=== PATIENT | female | born 1965 | race Caucasian/White ===

== ENCOUNTER → 2016-10-07 | Outpatient (CLI) | payer BC ==
[2016-10-07 10:11] LABS: BASO % 0.4 %; BASO ABS # 0.02 K/uL (0-0.2); COMPLETE YES; EOS % 2.2 %; HEMATOCRIT 44.5 % (37-47); IG% 0.2 %; LYMPH % 23.5 %; LYMPH ABS # 1.09 K/uL (1.2-3.4); MEAN CELL VOLUME 89.9 fL (80-100); MEAN CORPUSCULAR HEMOGLOBIN 30.1 pg (25-34); MEAN CORPUSCULAR HGB CONC 33.5 g/dl (32-36); MEAN PLATELET VOLUME 10.4 fL (7.4-10.4); MONO % 9.1 %; NEUT % 64.6 %; PLATELET COUNT 265 K/uL (130-400); RED BLOOD COUNT 4.95 M/uL (4.2-5.4); WHITE BLOOD COUNT 4.64 K/uL (4.8-10.8)
[2016-10-07 10:35] LABS: ALT/SGPT 23 U/L (12-78); AST/SGOT 12 U/L (15-37); BLOOD UREA NITROGEN 17 mg/dl (7-18); CALCIUM 8.9 mg/dl (8.5-10.1); CARBON DIOXIDE 30 mmol/L (21-32); CHLORIDE 107 mmol/L (98-107); CREATININE 0.81 mg/dl (0.60-1.20); GLUCOSE 86 mg/dl (70-99); POTASSIUM 4.2 mmol/L (3.5-5.1); SODIUM 142 mmol/L (136-145)
[2016-10-07 10:46] LABS: CHOLESTEROL 159 mg/dl (0-200); CHOLESTEROL/HDL RATIO 2.5; HDL CHOLESTEROL 63 mg/dl; LDL CHOLESTEROL CALCULATED 84 mg/dl; THYROID STIMULATING HORMONE 0.912 uIu/ml (0.300-4.500); TRIGLYCERIDES 60 mg/dl (0-150); VERY LOW DENSITY LIPOPROT CALC 12 mg/dl
== END | disposition home or self-care (01) ==
LOC: C.LAB 09:15
DX: E05.90 Thyrotoxicosis, unspecified without thyrotoxic crisis or storm (principal); I10 Essential (primary) hypertension

== ENCOUNTER → 2016-12-08 | Outpatient (CLI) | payer BC ==
--- NOTE | 2016-12-09 13:25 | MAMMOGRAPHY REPORT ---
BILATERAL DIGITAL SCREENING MAMMOGRAM TOMOSYNTHESIS WITH CAD: 12/08/2016 CLINICAL HISTORY: Routine screening. Patient has no complaints. TECHNIQUE: Breast tomosynthesis in addition to standard 2D mammography was performed. Current study was also evaluated with a Computer Aided Detection (CAD) system. COMPARISON: Comparison is made to exams dated: 12/08/2015 mammogram, 11/25/2014 mammogram, 11/22/2013 ma mmogram, 11/21/2012 mammogram, 11/04/2011 mammogram, and 11/02/2010 mammogram - [facility] nter. BREAST COMPOSITION: The tissue of both breasts is heterogeneously dense, which may obscure small mas ses. FINDINGS: No suspicious masses, calcifications, or areas of architectural distortion are noted in ei ther breast. There has been no significant interval change compared to prior exams. Scattered bilater al benign-appearing calcifications are not significantly changed. IMPRESSION: ACR BI-RADS CATEGORY 2: BENIGN There is no mammographic evidence of malignancy. A 1 year screening mammogram is recommended. The pa tient will receive written notification of the results. Approximately 10% of breast cancers are not detected with mammography. A negative mammographic report should not delay biopsy if a clinically suggestive mass is present. Umm Torres M.D. ah/:12/09/2016 07:11:50 Radiator Cleaner: Michaelle CARDONA)(Lou)(BD), [facility] letter sent: Normal 1/2 BI-RADS Code: ACR BI-RADS Category 2: Benign
== END | disposition home or self-care (01) ==
LOC: C.MAMM 08:39
PROVIDERS: ATTEND Obstetrics & Gynecology
DX: Z12.31 Encounter for screening mammogram for malignant neoplasm of breast (principal)

== ENCOUNTER → 2017-06-03 | Outpatient (CLI) | payer BC ==
[2017-06-03 11:49] LABS: BASO % 0.4 %; BASO ABS # 0.02 K/uL (0-0.2); COMPLETE YES; HEMATOCRIT 44.3 % (37-47); LYMPH % 23.1 %; LYMPH ABS # 1.16 K/uL (1.2-3.4); MEAN CELL VOLUME 91.5 fL (80-100); MEAN CORPUSCULAR HGB CONC 33.9 g/dl (32-36); MEAN PLATELET VOLUME 9.8 fL (7.4-10.4); NEUT % 70.5 %; PLATELET COUNT 286 K/uL (130-400); RED BLOOD COUNT 4.84 M/uL (4.2-5.4); WHITE BLOOD COUNT 5.02 K/uL (4.8-10.8)
[2017-06-03 12:13] LABS: BLOOD UREA NITROGEN 18 mg/dl (7-18); BUN/CREATININE RATIO 21.4 (10-20); CALCIUM 9.1 mg/dl (8.5-10.1); CARBON DIOXIDE 31 mmol/L (21-32); CHLORIDE 105 mmol/L (98-107); CREATININE 0.82 mg/dl (0.60-1.20); GLUCOSE 120 mg/dl (70-99); POTASSIUM 3.9 mmol/L (3.5-5.1); SODIUM 140 mmol/L (136-145)
[2017-06-03 12:23] LABS: THYROID STIMULATING HORMONE 0.628 uIu/ml (0.300-4.500)
== END | disposition home or self-care (01) ==
LOC: C.LAB 11:23
DX: E03.9 Hypothyroidism, unspecified (principal); E55.9 Vitamin D deficiency, unspecified; M19.90 Unspecified osteoarthritis, unspecified site; I10 Essential (primary) hypertension

== ENCOUNTER → 2017-09-29 | Outpatient (CLI) | payer BC ==
[2017-09-29 09:35] LABS: BASO % 0.4 %; BASO ABS # 0.02 K/uL (0-0.2); EOS % 1.8 %; EOS ABS # 0.09 K/uL (0-0.5); HEMATOCRIT 42.6 % (37-47); HEMOGLOBIN 14.2 g/dL (12.0-16.0); IG# 0.01 K/uL (0.00-0.02); LYMPH ABS # 1.13 K/uL (1.2-3.4); MEAN CELL VOLUME 90.8 fL (80-100); MEAN CORPUSCULAR HEMOGLOBIN 30.3 pg (25-34); MEAN CORPUSCULAR HGB CONC 33.3 g/dl (32-36); MEAN PLATELET VOLUME 10.2 fL (7.4-10.4); MONO % 9.3 %; MONO ABS # 0.46 K/uL (0.11-0.59); NEUT % 65.3 %; NEUT ABS # 3.21 K/uL (1.4-6.5); PLATELET COUNT 283 K/uL (130-400); RED CELL DISTRIBUTION WIDTH CV 13.4 % (11.5-14.5); RED CELL DISTRIBUTION WIDTH SD 44.1 fL (36.4-46.3); WHITE BLOOD COUNT 4.92 K/uL (4.8-10.8)
[2017-09-29 09:46] LABS: BLOOD UREA NITROGEN 17 mg/dl (7-18); CALCIUM 9.1 mg/dl (8.5-10.1); CARBON DIOXIDE 29 mmol/L (21-32); GLUCOSE 89 mg/dl (70-99); POTASSIUM 4.3 mmol/L (3.5-5.1); SODIUM 140 mmol/L (136-145)
== END | disposition home or self-care (01) ==
LOC: C.LAB 07:25
DX: I10 Essential (primary) hypertension (principal); E03.9 Hypothyroidism, unspecified; Z13.220 Encounter for screening for lipoid disorders; M19.90 Unspecified osteoarthritis, unspecified site

== ENCOUNTER → 2017-10-06 | Outpatient (CLI) | payer BC ==
--- NOTE | 2017-10-06 13:54 | DIAGNOSTIC IMAGING REPORT ---
L HIP UNILATERAL 2 VIEWS, R HIP UNILATERAL 2 VIEWS HISTORY: 52 years-old Female BILATERAL HIP PAIN acute bilateral hip pain without reported trauma COMPARISON: None available TECHNIQUE: 2 views of the bilateral hips FINDINGS: RIGHT: Moderate joint space narrowing with marginal spurring, subchondral sclerosis and subcortical cystic changes. No acute fracture or dislocation. Degenerative changes are also noted within the pubic symphysis and right SI joint. No opaque foreign body. LEFT: Moderate to severe joint space narrowing with marginal spurring, subchondral sclerosis and subcortical cystic changes. No acute fracture or dislocation. IMPRESSION: 1. No acute fracture or dislocation. 2. Degenerative changes about the bilateral hips as above. The above report was generated using voice recognition software. It may contain grammatical, syntax or spelling errors. Electronically signed by: Jaya Cisneros M.D. 10/06/2017 1:53 PM Dictated Date/Time: 10/06/2017 1:51 PM
== END | disposition home or self-care (01) ==
LOC: C.RAD 13:24
DX: M25.559 Pain in unspecified hip (principal); M16.0 Bilateral primary osteoarthritis of hip

== ENCOUNTER 2018-10-26 04:53 | Inpatient (IN) ==
--- NOTE | 2018-09-26 10:12 | PAT Medication Instructions ---
Medication Instructions Date of Service September 26, 2018 Home Medications acetaminophen [Tylenol] 1 - 2 tab PO Q6H PRN ascorbic acid (vitamin C) 1 tab PO QAM cholecalciferol (vitamin D3) 3,000 unit PO QAM fluticasone propionate [Flonase] 1 spray INTRANASAL BID folic acid 0.8 mg PO QAM magnesium oxide 400 mg PO QAM methotrexate sodium 1 dose PO UD metoprolol succinate 25 mg PO QAM naproxen [Naprosyn] 500 mg PO BID ranitidine HCl 300 mg PO BID sumatriptan succinate [Imitrex] 1 tab PO UD PRN topiramate [Trokendi XR] 100 mg PO HS ASK your surgeon for instructions naproxen [Naprosyn] 500 mg PO BID ASK your prescriber and surgeon methotrexate sodium 1 dose PO UD Take morning of surgery With a small sip of water, OTHERWISE NOTHING TO EAT OR DRINK AFTER MIDNIGHT: acetaminophen [Tylenol] 1 - 2 tab PO Q6H PRN (if needed, may be taken up to four hours before surgery) fluticasone propionate [Flonase] 1 spray INTRANASAL BID metoprolol succinate 25 mg PO QAM ranitidine HCl 300 mg PO BID sumatriptan succinate [Imitrex] 1 tab PO UD PRN (if needed) Take evening before surgery acetaminophen [Tylenol] 1 - 2 tab PO Q6H PRN (if needed) fluticasone propionate [Flonase] 1 spray INTRANASAL BID naproxen [Naprosyn] 500 mg PO BID ranitidine HCl 300 mg PO BID sumatriptan succinate [Imitrex] 1 tab PO UD PRN (if needed) topiramate [Trokendi XR] 100 mg PO HS Other Notes If you have any questions please call us at [phone] or [phone] or [phone] or [phone]
--- NOTE | 2018-09-26 11:54 | Anesthesiology Consultation ---
Date of Service September 26, 2018 Assessment & Plan (1) Encounter for pre-operative examination: Chart Review Chart Review: Acceptable Risk for Surgery and Patient seen in Pre Admission Testing Teaching & Discussion Pre-Anesthesia Teaching/Discussion Notes: Instructed NPO after midnight before surgery,except medications with 15 cc of water. Medication instructions provided according to the PAT guidelines. History Surgery Operation Date: 10/26/18 12:30 Proposed Procedures p Left Anterior Total Hip Arhtroplasty - Salty Dorantes DO Height/Weight Height: 5 ft 3 in Weight: 87.9 kg Allergies Allergy/AdvReac Type Severity Reaction Status Date / Time No Known Allergies Allergy Verified 09/21/18 15:03 Medications Home Medications Medication Instructions Recorded Confirmed Last Taken acetaminophen [Tylenol] 1 - 2 tab PO Q6H PRN 09/21/18 09/21/18 Unknown ascorbic acid (vitamin C) [Vitamin 1 tab PO QAM 09/21/18 09/21/18 Unknown C] cholecalciferol (vitamin D3) 3,000 unit PO QAM 09/21/18 09/21/18 Unknown [Vitamin D3] fluticasone propionate [Flonase 1 spray INTRANASAL BID 09/21/18 09/21/18 Unknown Allergy Relief] folic acid 0.8 mg PO QAM 09/21/18 09/21/18 Unknown magnesium oxide 400 mg PO QAM 09/21/18 09/21/18 Unknown methotrexate sodium 1 dose PO UD 09/21/18 09/21/18 Unknown metoprolol succinate 25 mg PO QAM 09/21/18 09/21/18 Unknown naproxen [Naprosyn] 500 mg PO BID 09/21/18 09/21/18 Unknown ranitidine HCl 300 mg PO BID 09/21/18 09/21/18 Unknown sumatriptan succinate [Imitrex] 1 tab PO UD PRN 09/21/18 09/21/18 Unknown topiramate [Trokendi XR] 100 mg PO HS 09/21/18 09/21/18 Unknown tramadol 50 mg PO Q8H PRN 09/26/18 09/26/18 Unknown Past Medical History Medical History GERD (gastroesophageal reflux disease) CONTROLLED Hypertension Migraine Obesity Osteoarthritis Rheumatoid arthritis ON MTX Scoliosis Past Surgical History Surgical History History of tooth extraction WTE Past Anesthesia History No Hx of Anesthesia Complications and No Family Hx of Anesthesia Complications History of PONV No Motion Sickness Screening History of Motion Sickness: No Social History Smoking Status: Never smoker Do You Dip or Chew Tobacco: No Hx Alcohol Use: No Hx Substance Use: No substance use type: does not use Exercise / Class Metabolic Activity II 4-5 Yardwork/Stairs/Walk up hill Review of Systems Patient denies chest pain, shortness of breath, dyspnea on exertion, cough, wheezing, palpitations. Physical Exam Vital Signs VITALS BP 105/74 P 67 TEMP 97.8 SP02 98%RA RESP 18 PHYSICAL Full neck and c-spine range of motion. Full TMJ range of motion. TMD 3 finger breaths Mallampati Score 2 Dentition: missing molars Lungs: clear throughout to auscultation Cardiac: regular rate and rhythm, no murmurs noted Spine: normal Carotid arteries: negative bruit Extremities: no edema Testing Electrocardiogram Date: 09/26/18 Findings: + NSR @ (73) Chest X-Ray Date: 09/26/18 Findings: + NAD Thoracolumbar sigmoidal scoliosis. Cervical Spine Date: 09/26/18 Slight straightening of normal cervical lordosis possibly positional. Vertebral bodies maintain normal height and alignment. Mild to moderate intervertebral disc height loss at C5-6, where there is a disc osteophyte complex and mild resultant posterior bony spurring. Normal predental interval. No prevertebral soft tissue swelling. On flexion positioning, slight reversal of normal cervical curvature with resultant minimal kyphosis. No dynamic subluxation. The predental interval remains unchanged. On extension positioning, expected exaggeration of cervical lordosis. No dynamic subluxation. Normal predental interval. Laboratory Results 09/26/18 11:53 09/26/18 11:53 Blood Type O Negative 09/26/18 11:53 Antibody Screen NEGATIVE 09/26/18 11:53 PT 10.3 Seconds (9.0-12.0) 09/26/18 11:53 INR 1.0 (0.9-1.1) 09/26/18 11:53 APTT 26.2 Seconds (21.0-31.0) 09/26/18 11:53
[2018-09-26 12:17] LABS: Basophils # (auto) 0.03 K/uL (0-0.2); Basophils % (auto) 0.5 %; Eosinophils # (auto) 0.14 K/uL (0-0.5); Eosinophils % (auto) 2.5 %; Hematocrit (blood only) 39.3 % (37-47); Immature Granulocytes # (auto) 0.01 K/uL (0.00-0.02); Immature Granulocytes % (auto) 0.2 %; Lymphocytes # (auto) 1.03 K/uL (1.2-3.4); Lymphocytes % (auto) 18.2 %; Mean Corpuscular Hgb Conc 33.1 g/dL (32-36); Mean Corpuscular Volume 96.6 fL (80-100); Mean Platelet Volume 10.2 fL (7.4-10.4); Monocytes # (auto) 0.45 K/uL (0.11-0.59); Neutrophils % (auto) 70.6 %; Platelet Count 279 K/uL (130-400); RDW Coefficient of Variation 14.4 % (11.5-14.5); RDW Standard Deviation 50.3 fL (36.4-46.3); Red Blood Count 4.07 M/uL (4.2-5.4); White Blood Count 5.66 K/uL (4.8-10.8)
[2018-09-26 12:32] LABS: Partial Thromboplastin Time 26.2 Seconds (21.0-31.0); Prothrombin Time 10.3 Seconds (9.0-12.0)
--- NOTE | 2018-09-26 12:53 | XRay Report ---
XR cervical spine 2 or 3V CLINICAL HISTORY: 53 years-old Female presenting with RHEUMATOID ARTHRITIS. TECHNIQUE: Lateral view of the cervical spine in neutral position as well as flexion and extension la teral views of the cervical spine were obtained. COMPARISON: None. FINDINGS: Slight straightening of normal cervical lordosis possibly positional. Vertebral bodies maintain trice l height and alignment. Mild to moderate intervertebral disc height loss at C5-6, where there is a di sc osteophyte complex and mild resultant posterior bony spurring. Normal predental interval. No preve rtebral soft tissue swelling. On flexion positioning, slight reversal of normal cervical curvature with resultant minimal kyphosis. No dynamic subluxation. The predental interval remains unchanged. On extension positioning, expected exaggeration of cervical lordosis. No dynamic subluxation. Normal predental interval. IMPRESSION: No evidence of dynamic subluxation on flexion or extension positioning. Focal degenerative change at C5-6. Electronically signed by: Joe Conti M.D. 09/26/2018 12:52 PM
--- NOTE | 2018-09-26 12:54 | XRay Report ---
XR chest Pre-admission PA/Lat HISTORY: 53 years-old Female pat preoperative exam. No acute chest complaints COMPARISON: None available TECHNIQUE: PA and lateral views of the chest FINDINGS: Cardiac mediastinal and hilar silhouettes are within normal limits. Thoracolumbar sigmoidal scoliosis . No pneumothorax, pleural effusion, focal airspace consolidation or overt pulmonary edema. Degenerat tiffani changes are seen about the shoulders and spine. IMPRESSION: No acute process. The above report was generated using voice recognition software. It may contain grammatical, syntax o r spelling errors. Electronically signed by: Jaya Cisneros M.D. 09/26/2018 12:53 PM
[2018-09-26 14:29] LABS: BUN Creatinine Ratio 23.6 (10-20); Creatinine Clr Calc Pharmacy 86.5 ml/min; Est GFR (African American) 98.2; Est GFR (Non-African American) 84.8; Potassium 4.5 mmol/L (3.5-5.1)
--- NOTE | 2018-10-23 07:40 | History & Physical Report ---
Date of Service October 23, 2018 Assessment & Plan (1) Osteoarthritis of left hip: We will proceed with a left anterior total hip arthroplasty. Postoperatively she will be started on aspirin for DVT prophylaxis. She will be kept overnight at the hospital for postop medical management. She plans to use [facility] outpatient therapy upon discharge. Present on Admission?: Yes History of Present Illness Chief Complaint: Primary osteoarthritis of the left hip Primary Care Provider: Jasmeet Awad MD Twila is a pleasant 53-year-old female who is been dealing with chronic increasing bilateral hip pain with the left worse than the right. X-rays and clinical examination have been diagnostic for bilateral osteoarthritis of the hips. After failing conservative treatment, she is elected proceed with a left anterior total hip arthroplasty. Allergies Allergy/AdvReac Type Severity Reaction Status Date / Time No Known Allergies Allergy Verified 09/21/18 15:03 Home Medications Home Medications Medication Instructions Recorded Confirmed Type acetaminophen [Tylenol] 1 - 2 tab PO Q6H PRN 09/21/18 09/21/18 History ascorbic acid (vitamin C) [Vitamin 1 tab PO QAM 09/21/18 09/21/18 History C] cholecalciferol (vitamin D3) 3,000 unit PO QAM 09/21/18 09/21/18 History [Vitamin D3] fluticasone propionate [Flonase 1 spray INTRANASAL BID 09/21/18 09/21/18 History Allergy Relief] folic acid 0.8 mg PO QAM 09/21/18 09/21/18 History magnesium oxide 400 mg PO QAM 09/21/18 09/21/18 History methotrexate sodium 1 dose PO UD 09/21/18 09/21/18 History metoprolol succinate 25 mg PO QAM 09/21/18 09/21/18 History naproxen [Naprosyn] 500 mg PO BID 09/21/18 09/21/18 History ranitidine HCl 300 mg PO BID 09/21/18 09/21/18 History sumatriptan succinate [Imitrex] 1 tab PO UD PRN 09/21/18 09/21/18 History topiramate [Trokendi XR] 100 mg PO HS 09/21/18 09/21/18 History tramadol 50 mg PO Q8H PRN 09/26/18 09/26/18 History Past Med/Surg History Medical History GERD (gastroesophageal reflux disease) CONTROLLED Hypertension Migraine Obesity Osteoarthritis Rheumatoid arthritis ON MTX Scoliosis Surgical History History of tooth extraction WTE Social History Preferred Language: Thai Communication Ability: Effective Beliefs That Will Affect Care: None Current Living Situation: Alone Feels Safe at Home: Yes Smoking Status: Never smoker Second Hand Exposure: No Hx Alcohol Use: No Hx Substance Use: No Review of Systems All systems reviewed & are unremarkable except as noted in HPI & below Physical Exam Constitutional: WD/WN, vitals as above Eyes: PERRL, conjunctivae normal, anicteric sclerae ENMT: external ear and nose normal, oropharynx normal Neck: trachea midline, no thyromegaly Respiratory: normal respiratory effort Cardiovascular: RRR, no murmur, no edema Gastrointestinal (Abdomen): normal bowel sounds, soft, nontender, no hepatosplenomegaly Musculoskeletal: Physical examination of the left hip reveals decreased range of motion with flexion, internal and external rotation. There is significant groin pain with forced internal rotation of the hip his leg lengths are essentially equal. Psychiatric: A+Ox3, euthymic affect Results & Data Diagnostic Findings Radiographs of the left hip and pelvis demonstrate advanced osteoarthritis with joint space narrowing osteophyte formation and [id number] articulation.
[2018-10-26] MEDS ORDERED: TRANEXAMIC ACID 1,000 MG **IV Pre-op IV SCH (06:00)
[2018-10-26] MEDS ORDERED: ROPIVACAINE 0.5% HCL/PF 150 MG, BUPIVACAINE 0.5% MPF 30 ML, EPINEPHrine 30MG/30ML (OR U... INFIL SCH (06:00)
[2018-10-26] MEDS ORDERED: FAMOTIDINE 20 MG TAB PO SCH (06:00)
[2018-10-26] MEDS ORDERED: GABAPENTIN 300 MG x 3 PO SCH (06:00)
[2018-10-26] MEDS ORDERED: LR 60ML/HR IV SCH (06:00)
[2018-10-26] MEDS ORDERED: ACETAMINOPHEN 500 MG TAB PO SCH (06:00)
[2018-10-26] MEDS ORDERED: CEFAZOLIN 2000MG 2,000 MG/15 ML SYR IV SCH (06:00)
[2018-10-26] MEDS ORDERED: LR 500ML BOLUS, THEN 15ML/HR IV SCH (06:00)
[2018-10-26] MEDS ORDERED: BUPIVACAINE 0.5 % 5 MG/1 ML PF 10ML VIAL ONE (06:23)
[2018-10-26] MEDS ORDERED: POVIDONE-IODINE OP SOLN 30 ML BTL ONE (06:29)
[2018-10-26] MEDS ORDERED: ORTHO JOINT ANESTHETIC ONE (06:29)
[2018-10-26] MEDS ORDERED: TRANEXAMIC ACID 1,000 MG **IV Intra-op IV SCH (06:30)
--- NOTE | 2018-10-26 06:36 | History & Physical Bridge Note ---
Date of Service October 26, 2018 History & Physical Bridge Note I have examined the patient, reviewed the History & Physical and in the interval since the performance of the History & Physical I have noted the following changes of clinical significance: no changes noted
[2018-10-26] MEDS ORDERED: PROPOFOL IV EMULSION 10 MG/ML 20 ML VIAL IV ONE (06:40)
[2018-10-26] MEDS ORDERED: LIDOCAINE HCL 2% 2 ML VIAL/AMP(20MG/ML) INFIL ONE (06:40)
[2018-10-26] MEDS ORDERED: MIDAZOLAM HCL 1 MG/ML 2ML VIAL ONE ×3 (06:40→08:17)
[2018-10-26] MEDS ORDERED: fentaNYL citrate 100 MCG/2 ML VIAL ONE (06:40)
[2018-10-26] MEDS ORDERED: ONDANSETRON INJ 2 MG/ML 2 ML VIAL IV PRN ×2 (07:01→10:17)
[2018-10-26] MEDS ORDERED: ATROPINE SULFATE 0.1 MG/ML 10ML SYR IV PRN (07:01)
[2018-10-26] MEDS ORDERED: ePHEDrine sulfate 50 MG/ML AMP IV PRN (07:01)
[2018-10-26] MEDS ORDERED: fentaNYL citrate 100 MCG/2 ML VIAL IV PRN (07:01)
--- NOTE | 2018-10-26 08:52 | Operative Report ---
Post Operative Report Pre & Post Diagnosis Operation Date: 10/26/18 07:00 Pre-Op Diagnosis: LEFT HIP DEGENERATIVE JOINT DISEASE Post-Op Diagnosis: LEFT HIP DEGENERATIVE JOINT DISEASE Procedure Operation Date: 10/26/18 07:00 Actual Procedures p Left Anterior Total Hip Arhtroplasty, Uncemented(Left) - Salty Dorantes DO Surgeon Salty Dorantes DO Fan Blade Aligner Salty Huff PAC Estimated Blood Loss 200 Findings Consistent with Post-Op Diagnosis Specimens Left femoral head Complications none Disposition Disposition: Recovery Room Indications Patient is a pleasant 53-year-old female who presented my office with complaints of chronic increasing left hip pain. X-rays and clinical examination were diagnostic for primary osteoarthritis of the left hip. After failing conservative treatment, she elected to proceed with a left anterior total hip arthroplasty. Description of Procedure Implants used Biomet Taperloc total hip arthroplasty system with a size 8 high offset Taperloc stem, a 48 mm G7 cup with a 25mm screw, an E1 polyethylene liner, a 32 mm ceramic head with a -3 neck. Patient arrived at the hospital for the above procedure. They were seen in the preoperative holding area and the operative extremity was identified and signed. They were given a spinal anesthetic. They were given a preoperative antibiotic and TXA. They were taken back To the operating room and laid on the table in the supine position. The leg was brought out through a Puristst leg positioner. The hip was then prepped and draped in sterile fashion. A timeout was done and the patient in upper extremities properly identified. An anterior approach was used. Dissection was taken down through the fascia and the tensor muscle belly was retracted laterally and the rectus was retracted medially. The circumflex vessels were identified and ligated. The capsule was then incised and tagged for later repair. The femoral neck was then cut and the femoral head was removed. The acetabulum was exposed. Time was spent doing a complete circumferential labral release. Sequential reaming of the acetabulum up to a size 47 reamer was done. Final reamings were done under fluoroscopy to ensure appropriate version. A Biomet 48 mm G7 cup was then impacted into place. A single 25 mm screw was placed. The E1 polyethylene liner was then snapped into place. Surrounding soft tissues were then injected with 100 cc of an orthopedic pain control cocktail. The proximal femur was then exposed. Sequential broaching up to a size 8 broach was done. Off that broach a size 32 head with a -3 neck was trialed. The hip was reduced and fluoroscopic images showed anatomic alignment of the implants in acceptable length. The broach was removed. The final size 8 high offset Taperloc stem was then impacted into place. A ceramic 32 mm head with a -3 neck was then impacted into place in the hip was reduced. Final fluoroscopic images showed anatomic reduction of the hip. The capsule was then closed with #1 Vicryl suture. A dilute betadyne lavage was then done for 3 minutes. The joint was then irrigated with normal saline solution. The fascia was closed with #1 PDS suture. Skin was closed with 2-0 Vicryl, joey, and a Catia VAC dressing. The patient was then transferred to a hospital bed and taken to the post anesthesia care unit in stable condition. They tolerated the procedure well. I attest to the content of the Intraoperative Record and any orders documented therein. Any exceptions are noted below.
[2018-10-26] MEDS ORDERED: PHENYLEPHRINE HCL 10 MG/ML VIAL ONE (09:13)
--- NOTE | 2018-10-26 09:21 | Fluoroscopy Report ---
FL hip LT 1V HISTORY: 53 years-old Female LT ANTERIOR JOHANNY left knee total joint arthroplasty. COMPARISON: Pelvis and hip radiographs 08/01/2018 TECHNIQUE: 2 spot fluoroscopic images of the left hip were obtained utilizing 0.5 seconds of fluorosc opy time FINDINGS: Left hip total joint arthroplasty is noted with satisfactory alignment. No acute fracture identified. IMPRESSION: Fluoroscopic assistance as above. Please see operative report for further details. The above report was generated using voice recognition software. It may contain grammatical, syntax o r spelling errors. Electronically signed by: Jaya Cisneros M.D. 10/26/2018 9:20 AM
--- NOTE | 2018-10-26 09:34 | Anesthesiology Progress Note ---
Date of Service October 26, 2018 Anesthesia Post Procedure Vital Signs Vital Signs: Temp Pulse Pulse Resp BP BP Pulse Ox 10/26/18 09:25 61 16 112/80 100 10/26/18 09:15 69 15 116/87 100 10/26/18 09:07 36.1 C L 75 16 119/94 99 10/26/18 05:38 36.8 C 83 18 137/88 96 Pain Intensity Left Hip: Pain Intensity: 0 Transfer of Care Handoff Completed per policy Notes Mental Status: alert / awake / arousable Patient Amnestic to Procedure: Yes Nausea / Vomiting: adequately controlled Pain: adequately controlled Airway Patency, RR, SpO2: stable & adequate BP & HR: stable & adequate Hydration State: stable & adequate Neuraxial Anesthesia: was administered and sensory block is resolving Anesthetic Complications: no major complications apparent
--- NOTE | 2018-10-26 09:34 | XRay Report ---
AP PELVIS, CROSSTABLE LATERAL LEFT HIP History: Left total hip arthroplasty. Degenerative arthritis. Postop. FINDINGS: The patient is status post a left total hip arthroplasty. The hardware is intact. No fractu re or dislocation. Skin joey are in place. IMPRESSION: Left total hip arthroplasty. No evidence for hardware complication. Electronically signed by: Nic Esparza M.D. 10/26/2018 9:33 AM
[2018-10-26] MEDS ORDERED: METOCLOPRAMIDE HCL INJ 5 MG/ML 2 ML VIAL IV PRN (10:17)
[2018-10-26] MEDS ORDERED: MAGNESIUM HYDROXIDE SUSP 30 ML UDC PO PRN (10:17)
[2018-10-26] MEDS ORDERED: BISACODYL 10 MG SUPP PR PRN (10:17)
[2018-10-26] MEDS ORDERED: NALOXONE HCL 0.4 MG/1 ML VIAL/CARP IV PRN (10:17)
[2018-10-26] MEDS ORDERED: SUMAtriptan succinate 100 MG TAB PO PRN (10:17)
[2018-10-26] MEDS ORDERED: HYDROmorphone INJ 0.5 MG/0.5 ML SYR IV PRN (10:17)
[2018-10-26] MEDS: SODIUM CHLORIDE 0.9% 1000ML 1,000 ML IV SCH ×2 (10:57→21:12)
[2018-10-26] MEDS: OXYCODONE HCL IR 5 MG TAB (IMMEDIATE RELEASE) PO PRN ×2 (10:58→19:26)
[2018-10-26] MEDS: KETOROLAC 30 MG/ML VIAL IV SCH ×3 (11:43→23:31)
[2018-10-26] MEDS: CEFAZOLIN 2000MG 2,000 MG/15 ML SYR IV SCH ×2 (14:04→21:25)
[2018-10-26] MEDS ORDERED: metHOTREXate sodium 2.5 MG TAB PO SCH (21:00)
[2018-10-26] MEDS ORDERED: TOPIRAMATE 100 MG PO SCH (21:00)
[2018-10-26] MEDS ORDERED: SENNA 8.6 MG TAB PO SCH (21:00)
[2018-10-26] MEDS: ASPIRIN 81 MG ECTAB PO SCH (21:14)
[2018-10-26] MEDS: FLUTICASONE PROPIONATE NA SPR 16 GM BTL NAE SCH (21:15)
[2018-10-26] MEDS: DOCUSATE SODIUM 100 MG CAP PO SCH (21:16)
[2018-10-27] MEDS: OXYCODONE HCL IR 5 MG TAB (IMMEDIATE RELEASE) PO PRN ×2 (04:11→11:03)
[2018-10-27] MEDS: KETOROLAC 30 MG/ML VIAL IV SCH ×2 (05:29→11:56)
[2018-10-27 06:49] LABS: Basophils # (auto) 0.02 K/uL (0-0.2); Basophils % (auto) 0.2 %; Eosinophils # (auto) 0.03 K/uL (0-0.5); Eosinophils % (auto) 0.3 %; Hematocrit (blood only) 30.7 % (37-47); Hemoglobin 10.3 g/dL (12.0-16.0); Immature Granulocytes # (auto) 0.02 K/uL (0.00-0.02); Immature Granulocytes % (auto) 0.2 %; Lymphocytes # (auto) 1.02 K/uL (1.2-3.4); Lymphocytes % (auto) 10.2 %; Mean Corpuscular Hgb Conc 33.6 g/dL (32-36); Mean Corpuscular Volume 95.3 fL (80-100); Mean Platelet Volume 9.9 fL (7.4-10.4); Monocytes # (auto) 1.14 K/uL (0.11-0.59); Monocytes % (auto) 11.4 %; Neutrophils # (auto) 7.77 K/uL (1.4-6.5); Neutrophils % (auto) 77.7 %; Platelet Count 194 K/uL (130-400); RDW Coefficient of Variation 14.3 % (11.5-14.5); RDW Standard Deviation 49.3 fL (36.4-46.3); Red Blood Count 3.22 M/uL (4.2-5.4)
[2018-10-27 07:21] LABS: Calcium 8.1 mg/dl (8.5-10.1); Creatinine Clr Calc Pharmacy 85.6 ml/min; Est GFR (African American) 98.2; Est GFR (Non-African American) 84.8; Potassium 3.7 mmol/L (3.5-5.1)
--- NOTE | 2018-10-27 08:10 | Anesthesiology Progress Note ---
Date of Service October 27, 2018 Anesthesia Post Procedure Vital Signs Vital Signs: Temp Pulse Pulse Pulse Resp BP BP 10/27/18 07:22 36.7 C 82 18 93/62 L 10/27/18 03:46 36.7 C 80 19 100/67 10/26/18 23:40 36.7 C 75 18 104/70 10/26/18 21:13 105/75 10/26/18 20:31 88/58 L 10/26/18 20:11 36.7 C 72 16 96/65 L 10/26/18 15:23 36.4 C L 82 16 94/61 L 10/26/18 13:21 36.4 C L 79 16 110/72 10/26/18 12:50 36.3 C L 10/26/18 12:18 73 16 104/71 10/26/18 11:28 62 16 112/76 10/26/18 10:50 68 16 135/90 10/26/18 10:20 35.3 C L 69 18 138/90 10/26/18 10:05 36 C L 63 15 149/75 H 10/26/18 09:50 58 L 15 112/84 10/26/18 09:35 63 14 128/82 10/26/18 09:25 61 16 112/80 10/26/18 09:15 69 15 116/87 10/26/18 09:07 36.1 C L 75 16 119/94 Pulse Ox 10/27/18 07:22 97 10/27/18 03:46 97 10/26/18 23:40 95 10/26/18 21:13 10/26/18 20:31 10/26/18 20:11 97 10/26/18 15:23 92 10/26/18 13:21 99 10/26/18 12:50 10/26/18 12:18 98 10/26/18 11:28 99 10/26/18 10:50 100 10/26/18 10:20 100 10/26/18 10:05 100 10/26/18 09:50 100 10/26/18 09:35 100 10/26/18 09:25 100 10/26/18 09:15 100 10/26/18 09:07 99 Pain Intensity Left Hip: Pain Intensity: 0 Transfer of Care Handoff Completed per policy Notes Mental Status: alert / awake / arousable Patient Amnestic to Procedure: Yes Nausea / Vomiting: adequately controlled Pain: adequately controlled Airway Patency, RR, SpO2: stable & adequate BP & HR: stable & adequate Neuraxial Anesthesia: was administered and sensory block is resolving Anesthetic Complications: no major complications apparent Notes: POD #1. Pt doing well, no comaplaints. Has been OOB and tolerating PO
[2018-10-27] MEDS: FLUTICASONE PROPIONATE NA SPR 16 GM BTL NAE SCH (08:29)
[2018-10-27] MEDS: ASPIRIN 81 MG ECTAB PO SCH (08:54)
[2018-10-27] MEDS: DOCUSATE SODIUM 100 MG CAP PO SCH (08:55)
[2018-10-27] MEDS ORDERED: METOPROLOL SUCC 25MG EXT REL TAB PO SCH (09:00)
[2018-10-27] MEDS ORDERED: ASCORBIC ACID 500 MG TAB PO SCH (09:00)
[2018-10-27] MEDS ORDERED: MAGNESIUM OXIDE 400 MG TAB PO SCH (09:00)
[2018-10-27] MEDS ORDERED: MULTIVITAMIN TAB PO SCH (09:00)
--- NOTE | 2018-10-27 10:33 | Orthopedic Progress Note ---
Date of Service October 27, 2018 Assessment & Plan (1) Osteoarthritis of left hip: Overall she is doing very well. Is not having much pain in the hip. She is happy with her progress at this point. She worked well this morning with physical therapy. She can be discharged home later today. She is taking aspirin 81 mg twice a day for DVT prophylaxis. She will follow-up with orthopedics in 2 weeks. Present on Admission?: Yes Catalino Mattson was seen and examined at bedside this morning. Overall she is doing extremely well. She is been up and ambulating with physical therapy. Her pain is well controlled. She has no complaints. Physical Exam Musculoskeletal: On physical examination of her left hip, the dressing is arielle n and dry. Her leg lengths are equal. She is active dorsiflexion plantarflexion of her left ankle. Sensations intact throughout. Results & Data Vital Signs (Past 12 Hours) Vital Signs Temp Pulse Pulse Resp BP Pulse Ox 10/27/18 07:22 36.7 C 82 18 93/62 L 97 10/27/18 03:46 36.7 C 80 19 100/67 97 10/26/18 23:40 36.7 C 75 18 104/70 95 Laboratory Results H & H 09/26/18 10/27/18 Range/Units 11:53 06:26 Hgb 13.0 10.3 L (12.0-16.0) g/dL Hct 39.3 30.7 L (37-47) % Coagulation 09/26/18 Range/Units 11:53 INR 1.0 (0.9-1.1) Diagnostic Findings Postoperative x-rays of the left hip show the prosthesis to be in anatomic alignment without any evidence of fracture, dislocation, or loosening.
--- NOTE | 2018-10-27 10:34 | Discharge Summary ---
Date of Service October 27, 2018 Admission HPI Per Admitting Provider Twila is a pleasant 53-year-old female who is been dealing with chronic increasing bilateral hip pain with the left worse than the right. X-rays and clinical examination have been diagnostic for bilateral osteoarthritis of the hips. After failing conservative treatment, she is elected proceed with a left anterior total hip arthroplasty. Specialty Data Orthopedic H & H 09/26/18 10/27/18 Range/Units 11:53 06:26 Hgb 13.0 10.3 L (12.0-16.0) g/dL Hct 39.3 30.7 L (37-47) % Coagulation 09/26/18 Range/Units 11:53 INR 1.0 (0.9-1.1) Discharge Data Consultations 10/27/18 08:00 Consult Case Management - Discharge Planning Routine Procedures Performed Operation Date: 10/26/18 07:00 Actual Procedures p Left Anterior Total Hip Arhtroplasty, Uncemented(Left) - Salty Dorantes DO Hospital Course (1) Osteoarthritis of left hip: On October 26, 2018 Twila arrived at [facility] and underwent a left anterior total hip arthroplasty without complication. She had a spinal anesthetic. Postoperatively she was discharged to general orthopedic floors. Her hospital course was uneventful. On postop day #1 her H&H was stable and her pain was well controlled. She was able to ambulate well with physical therapy. She was then discharged home. She is taking aspirin 81 mg twice a day for DVT prophylaxis. She will follow-up with orthopedics in 2 weeks. Discharge Instructions Home Medications Medication Instructions Recorded Confirmed acetaminophen [Tylenol] 1 - 2 tab PO Q6H PRN 09/21/18 10/26/18 ascorbic acid (vitamin C) [Vitamin 1 tab PO QAM 09/21/18 10/26/18 C] cholecalciferol (vitamin D3) 3,000 unit PO QAM 09/21/18 10/26/18 [Vitamin D3] fluticasone propionate [Flonase 1 spray INTRANASAL BID 09/21/18 10/26/18 Allergy Relief] folic acid 0.8 mg PO QAM 09/21/18 10/26/18 magnesium oxide 400 mg PO QAM 09/21/18 10/26/18 methotrexate sodium 1 dose PO UD 09/21/18 10/26/18 metoprolol succinate 25 mg PO QAM 09/21/18 10/26/18 naproxen [Naprosyn] 500 mg PO BID 09/21/18 10/26/18 ranitidine HCl 300 mg PO BID 09/21/18 10/26/18 sumatriptan succinate [Imitrex] 1 tab PO UD PRN 09/21/18 10/26/18 topiramate [Trokendi XR] 100 mg PO HS 09/21/18 10/26/18 tramadol 50 mg PO Q8H PRN 09/26/18 10/26/18 Previous Rx's Medication Instructions Recorded aspirin [Ecotrin Low Strength] 81 mg PO BID #84 tab 10/27/18 oxycodone 5 - 10 mg PO Q4H PRN #40 tab 10/27/18
== END 2018-10-27 13:56 | disposition home or self-care (01) | DRG 470 ==
LOC: ASU 04:53 → 3E 09:10

== ENCOUNTER 2019-03-01 05:01 | Inpatient (IN) ==
--- NOTE | 2019-01-28 15:21 | PAT Medication Instructions ---
Medication Instructions Date of Service January 28, 2019 Home Medications Trokendi XR 100 mg PO HS acetaminophen [Tylenol] 1 - 2 tab PO Q6H PRN ascorbic acid (vitamin C) [Vitamin C] 1 tab PO QAM cholecalciferol (vitamin D3) [Vitamin D3] 3,000 unit PO QAM fluticasone propionate [Flonase Allergy Relief] 1 spray INTRANASAL BID folic acid 0.8 mg PO QAM magnesium oxide 400 mg PO QAM methotrexate sodium 1 dose PO UD metoprolol succinate 25 mg PO QAM naproxen [Naprosyn] 500 mg PO BID ranitidine HCl 300 mg PO BID sumatriptan succinate [Imitrex] 1 tab PO UD PRN ASK your surgeon for instructions naproxen [Naprosyn] 500 mg PO BID ASK your prescriber and surgeon methotrexate sodium 1 dose PO UD DO NOT take the morning of surgery ascorbic acid (vitamin C) [Vitamin C] 1 tab PO QAM cholecalciferol (vitamin D3) [Vitamin D3] 3,000 unit PO QAM folic acid 0.8 mg PO QAM magnesium oxide 400 mg PO QAM ranitidine HCl 300 mg PO BID Take morning of surgery With a small sip of water, OTHERWISE NOTHING TO EAT OR DRINK AFTER MIDNIGHT: acetaminophen [Tylenol] 1 - 2 tab PO Q6H PRN (okay to take up to 4 hours prior to surgery if needed) fluticasone propionate [Flonase Allergy Relief] 1 spray INTRANASAL BID metoprolol succinate 25 mg PO QAM sumatriptan succinate [Imitrex] 1 tab PO UD PRN (if needed) Take evening before surgery Trokendi XR 100 mg PO HS acetaminophen [Tylenol] 1 - 2 tab PO Q6H PRN (if needed) fluticasone propionate [Flonase Allergy Relief] 1 spray INTRANASAL BID ranitidine HCl 300 mg PO BID sumatriptan succinate [Imitrex] 1 tab PO UD PRN (if needed) Other Notes If you have any questions please call us at [phone] or [phone] or [phone] or [phone]
--- NOTE | 2019-01-29 11:58 | Anesthesiology Consultation ---
Date of Service January 29, 2019 Assessment & Plan (1) Encounter for pre-operative examination: - PCP: 12/31/18: "At this point, she has no contraindications for proceeding" Chart Review Chart Review: Acceptable Risk for Surgery and Patient seen in Pre Admission Testing Teaching & Discussion Pre-Anesthesia Teaching/Discussion Notes: Instructed NPO after midnight before surgery,except medications with 15 cc of water. Medication instructions provided according to the PAT guidelines. History Surgery Operation Date: 03/01/19 08:50 Proposed Procedures p Right Anterior Total Hip Arthroplasty - Salty Dorantes DO Height/Weight Height: 5 ft 3 in Weight: 86.2 kg Allergies Allergy/AdvReac Type Severity Reaction Status Date / Time SENDY Inhibitors Allergy Mild Cough Verified 01/23/19 15:18 adhesive tape Allergy Mild SKIN Verified 01/23/19 15:19 IRRITATION Medications Home Medications Medication Instructions Recorded Confirmed Last Taken Trokendi XR 100 mg PO HS 09/21/18 01/23/19 10/25/18 20:00 acetaminophen [Tylenol] 1 - 2 tab PO Q6H PRN 09/21/18 01/23/19 10/25/18 16:00 ascorbic acid (vitamin C) [Vitamin 1 tab PO QAM 09/21/18 01/23/19 10/25/18 08:00 C] cholecalciferol (vitamin D3) 3,000 unit PO QAM 09/21/18 01/23/19 10/25/18 08:00 [Vitamin D3] fluticasone propionate [Flonase 1 spray INTRANASAL BID 09/21/18 01/23/19 10/25/18 20:00 Allergy Relief] folic acid 0.8 mg PO QAM 09/21/18 01/23/19 10/26/18 04:15 magnesium oxide 400 mg PO QAM 09/21/18 01/23/19 10/25/18 08:00 methotrexate sodium 1 dose PO UD 09/21/18 01/23/19 10/19/18 metoprolol succinate 25 mg PO QAM 09/21/18 01/23/19 10/26/18 04:15 naproxen [Naprosyn] 500 mg PO BID 09/21/18 01/23/19 10/19/18 ranitidine HCl 300 mg PO BID 09/21/18 01/23/19 10/26/18 04:15 sumatriptan succinate [Imitrex] 1 tab PO UD PRN 09/21/18 01/23/19 10/17/18 Past Medical History Medical History Hypertension (Chronic) Obesity GERD (gastroesophageal reflux disease) CONTROLLED Migraine Osteoarthritis Rheumatoid arthritis ON MTX Scoliosis Exercise / Class Metabolic Activity III < 4 Walking/Shop/Light housework (uses cane prn) Past Family History Family History Father Myocardial infarction Heart disease Clotting disorder Mother Myocardial infarction Cerebral aneurysm Heart disease Clotting disorder Hypertension Family/Other No problems noted. Brother Deep vein thrombosis Clotting disorder Sister Deep vein thrombosis Past Surgical History Surgical History History of tooth extraction [place] Teeth Extraction History of total hip arthroplasty Left JOHANNY: 10/26/18: SAB x1 at L3-L4 at [facility] Past Anesthesia History No Hx of Anesthesia Complications and No Family Hx of Anesthesia Complications History of PONV No Hx of PONV and No Hx of Motion Sickness Social History Smoking Status: Never smoker Do You Dip or Chew Tobacco: No Hx Alcohol Use: No Hx Substance Use: No substance use type: does not use Review of Systems Reflux controlled. Patient denies chest pain, shortness of breath, cough, wheezing, palpitations. Physical Exam Vital Signs VITALS BP 114/80 P 68 TEMP 98.2 SP02 97%RA RESP 16 PHYSICAL Full neck and c-spine range of motion. Full TMJ range of motion. TMD 3 finger breaths Mallampati Score 2 Dentition: missing molars Lungs: clear throughout to auscultation Cardiac: regular rate and rhythm, no murmurs noted Spine: normal Carotid arteries: negative bruit Extremities: no edema Testing Laboratory Results 01/29/19 12:10 PT 10.2 Seconds (9.0-12.0) 01/29/19 12:10 INR 1.0 (0.9-1.1) 01/29/19 12:10 APTT 26.6 Seconds (21.0-31.0) 01/29/19 12:10 Urine Color Yellow 01/29/19 12:10 Urine Appearance Clear (Clear) 01/29/19 12:10 Urine pH 6.0 (4.5-7.5) 01/29/19 12:10 Ur Specific Energy 1.019 (1.000-1.030) 01/29/19 12:10 Urine Protein Negative (Negative) 01/29/19 12:10 Urine Glucose (UA) Negative (Negative) 01/29/19 12:10 Urine Ketones Negative (Negative) 01/29/19 12:10 Urine Nitrite Negative (Negative) 01/29/19 12:10 Ur Leukocyte Esterase Negative (Negative) 01/29/19 12:10 Blood Type O Negative 01/29/19 12:10 Antibody Screen NEGATIVE 01/29/19 12:10 01/29/19 SODIUM 141 POTASSIUM 4.5 CHLORIDE 110 CO2 27 BUN 23 CREATININE 0.81 GLUCOSE 80 Electrocardiogram Date: 09/26/18 NSR at 71bpm. Chest X-Ray Date: 09/26/18 Cardiac mediastinal and hilar silhouettes are within normal limits. Thoracolumbar sigmoidal scoliosis. No pneumothorax, pleural effusion, focal airspace consolidation or overt pulmonary edema. Degenerative changes are seen about the shoulders and spine. Cervical Spine Date: 09/26/18 Slight straightening of normal cervical lordosis possibly positional. Vertebral bodies maintain normal height and alignment. Mild to moderate intervertebral disc height loss at C5-6, where there is a disc osteophyte complex and mild resultant posterior bony spurring. Normal predental interval. No prevertebral soft tissue swelling. On flexion positioning, slight reversal of normal cervical curvature with resultant minimal kyphosis. No dynamic subluxation. The predental interval remains unchanged. On extension positioning, expected exaggeration of cervical lordosis. No dynamic subluxation. Normal predental interval.
[2019-01-29 12:59] LABS: Basophils # (auto) 0.03 K/uL (0-0.2); Basophils % (auto) 0.7 %; Eosinophils # (auto) 0.14 K/uL (0-0.5); Eosinophils % (auto) 3.2 %; Hematocrit (blood only) 38.9 % (37-47); Hemoglobin 12.7 g/dL (12.0-16.0); Immature Granulocytes # (auto) 0.01 K/uL (0.00-0.02); Immature Granulocytes % (auto) 0.2 %; Lymphocytes # (auto) 0.94 K/uL (1.2-3.4); Lymphocytes % (auto) 21.4 %; Mean Corpuscular Hgb Conc 32.6 g/dL (32-36); Mean Corpuscular Volume 93.7 fL (80-100); Mean Platelet Volume 10.7 fL (7.4-10.4); Monocytes # (auto) 0.24 K/uL (0.11-0.59); Monocytes % (auto) 5.5 %; Neutrophils # (auto) 3.03 K/uL (1.4-6.5); Platelet Count 313 K/uL (130-400); RDW Coefficient of Variation 15.2 % (11.5-14.5); RDW Standard Deviation 51.2 fL (36.4-46.3); Red Blood Count 4.15 M/uL (4.2-5.4); White Blood Count 4.39 K/uL (4.8-10.8)
[2019-01-29 13:10] LABS: Appearance Urine Clear (Clear); Bilirubin Urine Negative (Negative); Blood Urine Negative (Negative); Color Urine Yellow; Glucose Urine UA Negative (Negative); Ketones Urine Negative (Negative); Leukocyte Esterase Urine Negative (Negative); Nitrite Urine Negative (Negative); Protein Urine Negative (Negative); Specific Gravity Urine 1.019 (1.000-1.030); Urobilinogen Urine Negative (Negative)
[2019-01-29 13:16] LABS: Partial Thromboplastin Time 26.6 Seconds (21.0-31.0); Prothrombin Time 10.2 Seconds (9.0-12.0)
[2019-03-01] MEDS ORDERED: ROPIVACAINE 0.5% HCL/PF 150 MG, BUPIVACAINE 0.5% MPF 30 ML, EPINEPHrine 30MG/30ML (OR U... INSTIL SCH (06:00)
[2019-03-01] MEDS ORDERED: FAMOTIDINE 20 MG TAB PO SCH (06:00)
[2019-03-01] MEDS ORDERED: ACETAMINOPHEN 500 MG TAB PO SCH (06:00)
[2019-03-01] MEDS ORDERED: LACTATED RINGER'S 1,000 ML IV SCH (06:00)
[2019-03-01] MEDS ORDERED: CEFAZOLIN 2000MG 2,000 MG/15 ML SYR IV SCH (06:00)
[2019-03-01] MEDS ORDERED: GABAPENTIN 900 MG DOSE PO SCH (06:00)
[2019-03-01] MEDS ORDERED: TRANEXAMIC ACID 1,000 MG **IV Pre-op IV SCH (06:00)
[2019-03-01] MEDS ORDERED: LR 500ML BOLUS, THEN 15ML/HR IV SCH (06:00)
[2019-03-01] MEDS ORDERED: BUPIVACAINE 0.5 % 5 MG/1 ML PF 10ML VIAL ONE (06:26)
[2019-03-01] MEDS ORDERED: TRANEXAMIC ACID 1,000 MG **IV Intra-op IV SCH (06:30)
--- NOTE | 2019-03-01 06:30 | History & Physical Bridge Note ---
Date of Service March 01, 2019 History & Physical Bridge Note I have examined the patient, reviewed the History & Physical and in the interval since the performance of the History & Physical I have noted the following changes of clinical significance: no changes noted
--- NOTE | 2019-03-01 06:30 | History & Physical Report ---
Date of Service March 01, 2019 Assessment & Plan (1) Osteoarthritis of right hip: We will proceed with a right anterior total hip arthroplasty. Postoperatively she will be placed on aspirin for DVT prophylaxis. She will be kept overnight at the hospital for postoperative medical management. She plans to use outpatient physical therapy at [facility] upon discharge. Present on Admission?: Yes History of Present Illness Chief Complaint: Primary osteoarthritis of the right hip Primary Care Provider: Jasmeet Awad MD Twila is a pleasant 53-year-old female who underwent a left total hip arthroplasty 3 months ago. She did extremely well with that. Unfortunately she is been having a lot of pain in her right hip. X-rays and clinical examination have been diagnostic for primary osteoarthritis of the right hip. After failing conservative treatment, she has elected to proceed with a right anterior total hip arthroplasty. Allergies Allergy/AdvReac Type Severity Reaction Status Date / Time SENDY Inhibitors Allergy Mild Cough Verified 03/01/19 05:41 adhesive tape Allergy Mild SKIN Verified 03/01/19 05:41 IRRITATION Home Medications Home Medications Medication Instructions Recorded Confirmed Type Trokendi XR 100 mg PO HS 09/21/18 03/01/19 History acetaminophen [Tylenol] 1 - 2 tab PO Q6H PRN 09/21/18 03/01/19 History ascorbic acid (vitamin C) [Vitamin 1 tab PO QAM 09/21/18 03/01/19 History C] cholecalciferol (vitamin D3) 3,000 unit PO QAM 09/21/18 03/01/19 History [Vitamin D3] fluticasone propionate [Flonase 1 spray INTRANASAL BID 09/21/18 03/01/19 History Allergy Relief] folic acid 0.8 mg PO QAM 09/21/18 03/01/19 History magnesium oxide 400 mg PO QAM 09/21/18 03/01/19 History methotrexate sodium 1 dose PO UD 09/21/18 03/01/19 History metoprolol succinate 25 mg PO QAM 09/21/18 03/01/19 History naproxen [Naprosyn] 500 mg PO BID 09/21/18 03/01/19 History ranitidine HCl 300 mg PO BID 09/21/18 03/01/19 History sumatriptan succinate [Imitrex] 1 tab PO UD PRN 09/21/18 03/01/19 History amoxicillin 875 mg-potassium 1 tab PO BID #20 tab 02/18/19 03/01/19 Rx clavulanate 125 mg tablet Past Med/Surg History Family History Father Myocardial infarction Heart disease Clotting disorder Mother Myocardial infarction Cerebral aneurysm Heart disease Clotting disorder Hypertension Family/Other No problems noted. Brother Deep vein thrombosis Clotting disorder Sister Deep vein thrombosis Social History Preferred Language: [place] Communication Ability: Effective Visual Impairment: No Limitations Hearing Ability: Normal Air Hose Coupler Required: No Beliefs That Will Affect Care: None marital status: Single Current Living Situation: Alone current occupational status: employed Other Information That Helps Us Care for You: No Feels Safe at Home: Yes Safety Concerns: Feels Safe At This Time Smoking Status: Never smoker Do You Dip or Chew Tobacco: No ; Second Hand Exposure: Yes ( A CHILD) ; Tobacco Cessation Education Requested by Patient: No Hx Alcohol Use: No Hx Substance Use: No Dental Care, Regularly: Yes Seatbelt Use: always Sunscreen Use: Yes Review of Systems All systems reviewed & are unremarkable except as noted in HPI & below Physical Exam Constitutional: WD/WN, vitals as above Eyes: PERRL, conjunctivae normal, anicteric sclerae ENMT: external ear and nose normal, oropharynx normal Neck: trachea midline, no thyromegaly Respiratory: normal respiratory effort Cardiovascular: RRR, no murmur, no edema Gastrointestinal (Abdomen): normal bowel sounds, soft, nontender, no hepatosplenomegaly Musculoskeletal: Physical examination of the right hip reveals decreased range of motion with flexion, internal and external rotation. There is significant groin pain with forced internal rotation of the hip his leg lengths are essentially equal. Psychiatric: A+Ox3, euthymic affect Results & Data Vital Signs (Past 12 Hours) Vital Signs Temp Pulse Resp BP Pulse Ox 03/01/19 06:01 36.8 C 80 18 135/91 98 Diagnostic Findings Radiographs of the right hip and pelvis demonstrate advanced osteoarthritis with joint space narrowing osteophyte formation and dioc-nr-iizo articulation.
[2019-03-01] MEDS ORDERED: ORTHO JOINT ANESTHETIC ONE (06:34)
[2019-03-01] MEDS ORDERED: LIDOCAINE HCL 2% 2 ML VIAL/AMP(20MG/ML) INFIL ONE (06:35)
[2019-03-01] MEDS ORDERED: PROPOFOL IV EMULSION 10 MG/ML 20 ML VIAL IV ONE (06:35)
[2019-03-01] MEDS ORDERED: MIDAZOLAM HCL 1 MG/ML 2ML VIAL ONE ×2 (06:36)
[2019-03-01] MEDS ORDERED: fentaNYL citrate 100 MCG/2 ML VIAL ONE (06:36)
[2019-03-01] MEDS ORDERED: PHENYLEPHRINE 100MCG/ML 5ML SYR ONE (07:30)
[2019-03-01] MEDS ORDERED: ONDANSETRON INJ 2 MG/ML 2 ML VIAL IV PRN ×2 (08:22→09:52)
[2019-03-01] MEDS ORDERED: ATROPINE SULFATE 0.1 MG/ML 10ML SYR IV PRN (08:22)
[2019-03-01] MEDS ORDERED: ePHEDrine sulfate 50 MG/ML AMP IV PRN (08:22)
[2019-03-01] MEDS ORDERED: fentaNYL citrate 100 MCG/2 ML VIAL IV PRN (08:22)
--- NOTE | 2019-03-01 08:40 | Operative Report ---
Post Operative Report Pre & Post Diagnosis Operation Date: 03/01/19 07:00 Pre-Op Diagnosis: Right Hip Degenerative Joint Disease Post-Op Diagnosis: Right Hip Degenerative Joint Disease Procedure Operation Date: 03/01/19 07:00 Actual Procedures p Right Anterior Total Hip Arthroplasty(Right) - Salty Dorantes DO Surgeon Salty Dorantes DO Form Setter Supervisor Salty Huff PAC Estimated Blood Loss 200 Findings Consistent with Post-Op Diagnosis Specimens Right femoral head Complications none Disposition Disposition: Recovery Room Indications Twila is a pleasant 53-year-old female who underwent a left total hip arthroplasty 3 months ago. She did very well with that. Unfortunately she is been having a lot of pain in her right hip. X-rays and clinical examination have been diagnostic for primary osteoarthritis of the right hip. After failing conservative treatment, she elected to proceed with a right total hip arthroplasty. Description of Procedure Implants used Biomet Taperloc total hip arthroplasty system with a size 8 high offset Taperloc stem, a 48 mm G7 cup with a 25mm screw, an E1 polyethylene liner, a 32 mm ceramic head with a -3 neck. Patient arrived at the hospital for the above procedure. They were seen in the preoperative holding area and the operative extremity was identified and signed. They were given a spinal anesthetic. They were given a preoperative antibiotic and TXA. They were taken back To the operating room and laid on the table in the supine position. The leg was brought out through a Puristst leg positioner. The hip was then prepped and draped in sterile fashion. A timeout was done and the patient in upper extremities properly identified. An anterior approach was used. Dissection was taken down through the fascia and the tensor muscle belly was retracted laterally and the rectus was retracted medially. The circumflex vessels were identified and ligated. The capsule was then incised and tagged for later repair. The femoral neck was then cut and the femoral head was removed. The acetabulum was exposed. Time was spent doing a complete circumferential labral release. Sequential reaming of the acetabulum up to a size 47 reamer was done. Final reamings were done under fluoroscopy to ensure appropriate version. A Biomet 48 mm G7 cup was then impacted into place. A single 25 mm screw was placed. The E1 polyethylene liner was then snapped into place. Surrounding soft tissues were then injected with 100 cc of an orthopedic pain control cocktail. The proximal femur was then exposed. Sequential broaching up to a size 8 broach was done. Off that broach a size 32 head with a -3 neck was trialed. The hip was reduced and fluoroscopic images showed anatomic alignment of the implants in acceptable length. The broach was removed. The final size 8 high offset Taperloc stem was then impacted into place. A ceramic 32 mm head with a -3 neck was then impacted into place in the hip was reduced. Final fluoroscopic images showed anatomic reduction of the hip. The capsule was then closed with #1 Vicryl suture. A dilute betadyne lavage was then done for 3 minutes. The joint was then irrigated with normal saline solution. The fascia was closed with #1 PDS suture. Skin was closed with 2-0 Vicryl, joey, and a Catia VAC dressing. The patient was then transferred to a hospital bed and taken to the post anesthesia care unit in stable condition. They tolerated the procedure well. I attest to the content of the Intraoperative Record and any orders documented therein. Any exceptions are noted below.
--- NOTE | 2019-03-01 09:12 | Fluoroscopy Report ---
FL hip RT 1V HISTORY: 53 years-old Female RT ANTERIOR HIP right hip arthroplasty COMPARISON: Pelvis radiographs 12/11/2018 TECHNIQUE: 2 spot fluoroscopic images of the right hip were obtained utilizing 30.6 seconds fluorosco py time FINDINGS: Right hip total joint arthroplasty demonstrates satisfactory alignment. No acute fracture or retained foreign body. Expected postsurgical soft tissue swelling and deep tissue air. Degenerative changes o f the pubic symphysis. IMPRESSION: Fluoroscopic assistance as above. Please see operative report for further details. The above report was generated using voice recognition software. It may contain grammatical, syntax o r spelling errors. Electronically signed by: Jaya Cisneros M.D. 03/01/2019 9:11 AM
--- NOTE | 2019-03-01 09:42 | XRay Report ---
XR hip 1V RT w pelvis CLINICAL HISTORY: 53 years-old Female presenting with IN PACU - A/P PELVIS and LATERAL HIP . TECHNIQUE: Single frontal view of the pelvis and crosstable lateral view of the right hip were obtain ed. COMPARISON: 10/26/2018. FINDINGS: There has been interval total right hip arthroplasty. Redemonstration of the total left hip arthropla sty. Skin joey overlie the right hip surgical site. Expected soft tissue emphysema. No periprosthe tic fracture or malalignment. Visualized portion of the bony pelvis intact. IMPRESSION: Expected post surgical appearance status post total right hip arthroplasty. Electronically signed by: Joe Conti M.D. 03/01/2019 9:41 AM
[2019-03-01] MEDS ORDERED: NALOXONE HCL 0.4 MG/1 ML VIAL/CARP IV PRN (09:52)
[2019-03-01] MEDS ORDERED: MAGNESIUM HYDROXIDE SUSP 30 ML UDC PO PRN (09:52)
[2019-03-01] MEDS ORDERED: BISACODYL 10 MG SUPP PR PRN (09:52)
[2019-03-01] MEDS ORDERED: HYDROmorphone INJ 0.5 MG/0.5 ML SYR IV PRN (09:52)
[2019-03-01] MEDS ORDERED: SUMAtriptan succinate 100 MG TAB PO PRN (09:52)
[2019-03-01] MEDS ORDERED: METOCLOPRAMIDE HCL INJ 5 MG/ML 2 ML VIAL IV PRN (09:52)
[2019-03-01] MEDS ORDERED: KETOROLAC 30 MG/ML VIAL IV SCH (10:00)
--- NOTE | 2019-03-01 10:03 | Anesthesiology Progress Note ---
Date of Service March 01, 2019 Anesthesia Post Procedure Vital Signs Vital Signs: Temp Pulse Pulse Resp BP Pulse Ox 03/01/19 09:32 36.2 C L 67 14 109/76 100 03/01/19 09:20 73 14 117/79 100 03/01/19 09:10 69 14 105/81 100 03/01/19 09:00 36.1 C L 83 15 99/76 L 95 03/01/19 06:01 36.8 C 80 18 135/91 98 Transfer of Care Handoff Completed per policy Notes Mental Status: alert / awake / arousable and participated in evaluation Nausea / Vomiting: adequately controlled Pain: adequately controlled Airway Patency, RR, SpO2: stable & adequate BP & HR: stable & adequate Hydration State: stable & adequate Neuraxial Anesthesia: was administered and sensory block is resolving Anesthetic Complications: no major complications apparent and Pt Satisfied with anesthetic care
[2019-03-01] MEDS: SODIUM CHLORIDE 0.9% 1000ML 1,000 ML IV SCH ×2 (10:19→20:14)
[2019-03-01] MEDS: OXYCODONE HCL IR 5 MG TAB (IMMEDIATE RELEASE) PO PRN ×2 (11:02→11:43)
[2019-03-01] MEDS: metHOTREXate sodium 2.5 MG TAB PO SCH ×2 (12:27→21:23)
[2019-03-01] MEDS: ACETAMINOPHEN 500 MG TAB PO SCH ×2 (14:00→21:23)
[2019-03-01] MEDS: CEFAZOLIN 2000MG 2,000 MG/15 ML SYR IV SCH ×2 (14:01→22:42)
[2019-03-01] MEDS ORDERED: AMOXICILLIN/CLAVULANATE 875 MG TAB PO SCH (21:00)
[2019-03-01] MEDS ORDERED: SENNA 8.6 MG TAB PO SCH (21:00)
[2019-03-01] MEDS ORDERED: [UNRECOGNIZED DRUG - REMARK] PO SCH (21:00)
[2019-03-01] MEDS: ASPIRIN 81 MG ECTAB PO SCH (21:23)
[2019-03-01] MEDS: DOCUSATE SODIUM 100 MG CAP PO SCH (21:23)
[2019-03-01] MEDS: FLUTICASONE PROPIONATE NA SPR 16 GM BTL SCH (21:31)
[2019-03-02] MEDS: OXYCODONE HCL IR 5 MG TAB (IMMEDIATE RELEASE) PO PRN ×2 (00:18→10:21)
[2019-03-02] MEDS: ACETAMINOPHEN 500 MG TAB PO SCH (05:32)
[2019-03-02 07:18] LABS: Hematocrit (blood only) 33.5 % (37-47); Hemoglobin 10.9 g/dL (12.0-16.0); Mean Corpuscular Hgb Conc 32.5 g/dL (32-36); Mean Corpuscular Volume 92.5 fL (80-100); Mean Platelet Volume 9.7 fL (7.4-10.4); Platelet Count 165 K/uL (130-400); RDW Coefficient of Variation 15.6 % (11.5-14.5); RDW Standard Deviation 52.3 fL (36.4-46.3); Red Blood Count 3.62 M/uL (4.2-5.4); White Blood Count 9.52 K/uL (4.8-10.8)
[2019-03-02 07:51] LABS: BUN Creatinine Ratio 15.3 (10-20); Calcium 8.4 mg/dl (8.5-10.1); Creatinine Clr Calc Pharmacy 66.4 ml/min; Est GFR (African American) 73.2; Est GFR (Non-African American) 63.2; Potassium 3.8 mmol/L (3.5-5.1)
[2019-03-02 07:59] LABS: Basophils # (auto) 0.02 K/uL (0-0.2); Basophils % (auto) 0.2 %; Eosinophils # (auto) 0.02 K/uL (0-0.5); Eosinophils % (auto) 0.2 %; Immature Granulocytes # (auto) 0.02 K/uL (0.00-0.02); Immature Granulocytes % (auto) 0.2 %; Lymphocytes # (auto) 0.85 K/uL (1.2-3.4); Lymphocytes % (auto) 8.9 %; Monocytes # (auto) 0.98 K/uL (0.11-0.59); Monocytes % (auto) 10.3 %; Neutrophils # (auto) 7.63 K/uL (1.4-6.5); Neutrophils % (auto) 80.2 %
--- NOTE | 2019-03-02 08:16 | Orthopedic Progress Note ---
Date of Service March 02, 2019 Assessment & Plan (1) Osteoarthritis of right hip: Overall she is doing very well. She is already up and ambulating on her right hip. She is on aspirin for DVT prophylaxis. She will be seen by physical therapy today for ambulation and range of motion exercises. She can be discharged home later today. She will follow-up with orthopedics in 2 weeks. Present on Admission?: Yes Catalino Mattson was seen and examined at bedside this morning. Overall she is doing very well. She has a little bit of soreness and numbness around the right hip but is not too bad. She is already been up and ambulating. She has no complaints. Physical Exam Musculoskeletal: On physical examination of the right hip, the Catia VAC dressing is to suction. Her leg lengths are equal. She has active dorsiflexion and plantarflexion of her right ankle. Results & Data Vital Signs (Past 12 Hours) Vital Signs Temp Pulse Resp BP Pulse Ox 03/02/19 06:57 36.7 C 79 18 91/63 L 96 03/02/19 03:13 36.9 C 80 18 98/67 L 96 03/02/19 00:05 36.8 C 76 18 114/79 99 Laboratory Results H & H 01/29/19 03/02/19 Range/Units 12:10 06:58 Hgb 12.7 10.9 L (12.0-16.0) g/dL Hct 38.9 33.5 L (37-47) % Coagulation 01/29/19 Range/Units 12:10 INR 1.0 (0.9-1.1) Diagnostic Findings Postoperative x-rays of the right hip show the prosthesis to be in anatomic alignment without any evidence of fracture, dislocation, or loosening. PG Care Time/CCT Total # of Minutes Spent Total Time Spent with Patient: Total time spent is greater than 50% in coordination of care (as documented) at patient's floor/unit and/or counseling patient:
--- NOTE | 2019-03-02 08:17 | Discharge Summary ---
Date of Service March 02, 2019 Admission HPI Per Admitting Provider Twila is a pleasant 53-year-old female who underwent a left total hip arthroplasty 3 months ago. She did extremely well with that. Unfortunately she is been having a lot of pain in her right hip. X-rays and clinical examination have been diagnostic for primary osteoarthritis of the right hip. After failing conservative treatment, she has elected to proceed with a right anterior total hip arthroplasty. Principal Diagnosis Right total hip arthroplasty Discharge Data Allergies Allergy/AdvReac Type Severity Reaction Status Date / Time SENDY Inhibitors Allergy Mild Cough Verified 03/01/19 05:41 adhesive tape Allergy Mild SKIN Verified 03/01/19 05:41 IRRITATION Consultations 03/02/19 08:00 Consult Case Management - Discharge Planning Routine Procedures Performed Operation Date: 03/01/19 07:00 Actual Procedures p Right Anterior Total Hip Arthroplasty(Right) - Salty Dorantes DO Ordered Studies 03/01/19 07:00 FL fluoroscopy <1hr Routine FL hip RT 1V Routine Hospital Course (1) Osteoarthritis of right hip: On March 01, 2019 Twila arrived at [facility] and underwent a right anterior total hip arthroplasty without complication. She had a spinal anesthetic. Postoperatively she was started on aspirin for DVT prophylaxis and discharged to general orthopedic floors. Her hospital course is uneventful. On postop day #1 her H&H was stable and her pain was well controlled. She was able to ambulate well with physical therapy. She was then discharged home. She will follow-up with orthopedics in 2 weeks. Total Time Total Time Spent Total Time Spent (In Minutes): 20 Discharge Plan Discharge Items Patient Disposition: Home - Home Health Services Reason For Visit: Right Hip Degenerative Joint Disease Discharge Diagnosis: Right total hip arthroplasty Discharge Goals: Decrease discomfort and Improve function Activity: Per 'Additional Instructions' section Non-emergency contact: Surgeon Call non-emergency contact if: your wound has increased redness and your wound has increased drainage Follow-up/Referrals: Jasmeet Awad III, MD [Primary Care Provider] - Diet: Regular Addtl Provider Instructions: Activity and Therapy Recommendations: * If you are using [facility] then therapy will be provided at your home until they feel you have accomplished all of your goals. * If you are using [facility] then Physical Therapy will be provided until they feel you are ready to start Outpatient Physical Therapy. * If you are not using home therapy then Outpatient Physical Therapy should start about 3-5 days from your day of surgery. Therapy will last about 6-10 weeks * You were shown a series of exercises in the hospital. Do these exercises three times each day including the exercises you were shown in physical therapy. * Get up and walk several times each day.~ For the first four weeks, try not to stand or walk for more than one hour at a time. If you do stand or walk for more than one hour, you will not hurt anything, but your leg will likely swell.~~ * As you feel comfortable, you may change from the walker or crutches to a cane and~then to independent walking. Medications: * Narcotic You will likely be sent home from the hospital with a prescription for the narcotic pain medication that worked best throughout your stay. * Aspirin Most patients will be required to take Aspirin 81mg twice a day for 6 weeks after surgery. This is obtained [id number] and a prescription is not necessary. * Other medications may be prescribed for specific circumstances. If you have any questions, please call the office at . * Resume previous home medications unless otherwise instructed TEDs/Elastic Stockings: The white elastic stockings help limit swelling and prevent blood clots from forming in your legs. The more you wear them, the more they work. Wear them for six weeks. Dressing Care: You will likely have a purple VAC dressing after surgery. This dressing will keep the incision dry and promote early healing. After about 7 days the batteries will wear out and the VAC will lose suction. Simply remove the dressing at that time and throw everything away, including the small suction machine. Then, you may leave the joey open to air or cover them with a dry dressing so they do not rub on your pants. The joey will be removed at your 2 week follow-up appointment. Showering: You may shower immediately with the purple VAC dressing. Let the shower spray hit your opposite side and slowly pat the plastic dry. Do not soak the dressing. After the dressing is removed you may shower normally with the joey exposed. Let soapy water run over the joey and pat them dry. Things To Watch For: * Drainage from the incision site that occurs more than one week after your surgery. * Increased redness at the incision site. * Fever above 102 degrees Fahrenheit. * Unusual chest pain or shortness of breath. * Call [facility] at with any of the above problems Follow-Up Visit: Follow-up with Dr. Dorantes 2-3 weeks after your day of surgery. An appointment was probably scheduled when you signed-up for surgery in the office. If you have any questions call Office Instructions: More detailed instructions as well as Frequently Asked Questions were provided in a folder by our office when you signed-up for surgery. Please review these instructions when you get home. If you have any further questions or concerns, please feel free to call the office at [phone] Prescriptions: New oxycodone 5 mg Tablet 5 - 10 mg PO Q4H PRN (Reason: pain) Qty: 40 RF: 0 aspirin [Ecotrin Low Strength] 81 mg Tablet,Delayed Release (Dr/Ec) 81 mg PO BID Qty: 84 RF: 0 Continued amoxicillin-pot clavulanate [Augmentin] 875-125 mg tablet 1 tab PO BID Qty: 20 RF: 0 ascorbic acid (vitamin C) [Vitamin C] 1,000 mg Tablet 1 tab PO QAM RF: 0 acetaminophen [Tylenol] 325 mg Tablet 1 - 2 tab PO Q6H PRN (Reason: Pain) RF: 0 ranitidine HCl 300 mg Tablet 300 mg PO BID RF: 0 sumatriptan succinate [Imitrex] 100 mg Tablet 1 tab PO UD PRN (Reason: Migraine Headache) RF: 0 methotrexate sodium 2.5 mg Tablet 1 dose PO UD RF: 0 metoprolol succinate 25 mg Tablet Extended Release 24 Hr 25 mg PO QAM RF: 0 fluticasone propionate [Flonase Allergy Relief] 50 mcg/actuation [place],Suspension 1 spray INTRANASAL BID RF: 0 folic acid 800 mcg Tablet 0.8 mg PO QAM RF: 0 naproxen [Naprosyn] 500 mg Tablet 500 mg PO BID RF: 0 cholecalciferol (vitamin D3) [Vitamin D3] 1,000 unit Tablet 3,000 unit PO QAM RF: 0 magnesium oxide 400 mg Capsule 400 mg PO QAM RF: 0 Trokendi XR 100 mg Capsule,Extended Release 24hr 100 mg PO HS RF: 0 Stand-Alone Forms: [facility], [facility] Discharge Orders: Discharge Order (Routine); Ordered 03/02/19 Ordered By: Salty Dorantes Admission Data Admit Date/Time: 03/01/19 09:05 Attending Provider: Salty Dorantes Admit Provider: Salty Dorantes Primary Care Provider: Jasmeet Awad III Service: Surgical Services
[2019-03-02] MEDS: DOCUSATE SODIUM 100 MG CAP PO SCH (08:48)
[2019-03-02] MEDS: ASPIRIN 81 MG ECTAB PO SCH (08:48)
[2019-03-02] MEDS: FLUTICASONE PROPIONATE NA SPR 16 GM BTL SCH (08:49)
[2019-03-02] MEDS ORDERED: FOLIC ACID 400 MCG TAB PO SCH (09:00)
[2019-03-02] MEDS ORDERED: MULTIVITAMIN TAB PO SCH (09:00)
[2019-03-02] MEDS ORDERED: MAGNESIUM OXIDE 400 MG TAB PO SCH (09:00)
[2019-03-02] MEDS ORDERED: METOPROLOL SUCC 25MG EXT REL TAB PO SCH (09:00)
== END 2019-03-02 11:45 | disposition home or self-care (01) | DRG 470 ==
LOC: ASU 05:01 → 3E 09:05

== ENCOUNTER 2019-05-13 09:27 | Inpatient (IN) ==
--- NOTE | 2019-05-13 10:06 | XRay Report ---
XR chest 1V portable CLINICAL HISTORY: Chest Pain dyspnea COMPARISON STUDY: 09/26/2018 FINDINGS: The bones soft tissues and hemidiaphragms are normal. The cardiomediastinal silhouette is n ormal. The lungs are clear. The pulmonary vasculature is normal. IMPRESSION: Negative chest. The above report was generated using voice recognition software. It may contain grammatical, syntax or spelling errors. Electronically signed by: Fred Thrasher M.D. 05/13/2019 10:04 AM
[2019-05-13 10:24] LABS: Basophils # (auto) 0.03 K/uL (0-0.2); Basophils % (auto) 0.4 %; Eosinophils # (auto) 0.04 K/uL (0-0.5); Eosinophils % (auto) 0.5 %; Hematocrit (blood only) 41.4 % (37-47); Hemoglobin 13.7 g/dL (12.0-16.0); Immature Granulocytes # (auto) 0.01 K/uL (0.00-0.02); Immature Granulocytes % (auto) 0.1 %; Lymphocytes # (auto) 0.53 K/uL (1.2-3.4); Lymphocytes % (auto) 6.5 %; Mean Corpuscular Hemoglobin 31.2 pg (25-34); Mean Corpuscular Hgb Conc 33.1 g/dL (32-36); Mean Corpuscular Volume 94.3 fL (80-100); Monocytes # (auto) 0.23 K/uL (0.11-0.59); Monocytes % (auto) 2.8 %; Neutrophils # (auto) 7.33 K/uL (1.4-6.5); Neutrophils % (auto) 89.7 %; Platelet Count 208 K/uL (130-400); RDW Coefficient of Variation 16.1 % (11.5-14.5); RDW Standard Deviation 55.6 fL (36.4-46.3); Red Blood Count 4.39 M/uL (4.2-5.4); White Blood Count 8.17 K/uL (4.8-10.8)
[2019-05-13] MEDS ORDERED: SODIUM CHLORIDE 0.9% 1000ML 1,000 ML IV ONE (10:28)
[2019-05-13 10:43] LABS: Albumin Level 4.1 gm/dl (3.4-5.0); BUN Creatinine Ratio 32.4 (10-20); Calcium 9.3 mg/dl (8.5-10.1); Creatinine Clr Calc Pharmacy 71.8 ml/min; Est GFR (African American) 78.8; Potassium 3.7 mmol/L (3.5-5.1)
[2019-05-13 11:02] LABS: Albumin Globulin Ratio 1.1 (0.9-2); Bilirubin,Total 0.6 mg/dl (0.2-1); Globulin 3.6 gm/dl (2.5-4.0); Total Protein 7.7 gm/dl (6.4-8.2); Troponin I 0.593 ng/ml (0-0.045)
[2019-05-13] MEDS ORDERED: OPTIRAY 320 125ml IV PRN (11:08)
--- NOTE | 2019-05-13 11:28 | CT Scan Report ---
CT SCAN OF THE ABDOMEN AND PELVIS WITH IV CONTRAST CLINICAL HISTORY: Dyspnea. Tachycardia. Lower extremity edema. COMPARISON STUDY: No priors. TECHNIQUE: Following the IV administration of 119 cc of Optiray 320, CT scan of the abdomen and pelv is is performed from the lung bases to the proximal femora. Images are reviewed in the axial, sagitta l, and coronal planes. IV contrast was administered without complication. A dose lowering technique w as utilized adhering to the principles of ALARA. CT DOSE: 1343.54 mGy.cm FINDINGS: Lung bases: The heart is normal in size and without pericardial effusion. The lung bases are clear. P ulmonary emboli are identified within branches of the right lower lobe pulmonary artery. Liver: The contrast-enhanced liver is normal in size, contour, and attenuation. There is no intrahepa tic biliary ductal dilatation. The hepatic veins and portal veins are patent. Fatty infiltration is n oted adjacent to falciform ligament. Gallbladder: Unremarkable. Spleen: Normal in size and attenuation. Pancreas: Unremarkable. Adrenal glands: Unremarkable. Kidneys: The contrast enhanced kidneys are normal in size and without hydronephrosis. The kidneys enh ance symmetrically. Abdominal vasculature: The abdominal aorta is normal in course and caliber. Deep venous thrombosis is present within the right external iliac vein and extends into the right common femoral and superfici al femoral veins. Bowel: There is no bowel obstruction. Fecal retention is noted in the colon. The appendix is well-vi sualized and normal. Peritoneum: There is no intraperitoneal free air or abdominal ascites. Lymphadenopathy: None. Pelvic viscera: Evaluation of the pelvis is degraded by streak artifact from bilateral hip arthroplas ties. The bladder is normal as visualized. Uterine fibroids are suspected. No adnexal lesion is seen. Postoperative change is noted in the right groin. Skeletal structures: The skeletal structures are osteopenic. There is moderate lumbosacral spondylosi s and scoliosis. No lytic or blastic lesions are seen. Bilateral hip arthroplasties are in place. IMPRESSION: 1. There are no acute infectious or inflammatory findings in the abdomen or pelvis. 2. Pulmonary emboli are present within branches of the right lower lobe pulmonary artery. 3. Deep venous thrombosis is present within the right external iliac, right common femoral, and visua lized right superficial femoral veins. Electronically signed by: Palomo Landeros M.D. 05/13/2019 11:27 AM
--- NOTE | 2019-05-13 11:28 | CT Scan Report ---
CT angio chest PE protocol CT DOSE: HISTORY: Chest pain. Dyspnea. PE TECHNIQUE: Multiaxial CT images of the chest were performed following the intravenous administration of contrast to evaluate the pulmonary arteries. Maximal intensity projection images were also obtaine d. A dose lowering technique was utilized adhering to the principles of ALARA. COMPARISON STUDY: None. FINDINGS: This study is consistent with that of extensive bilateral pulmonary emboli. This involves t he distal main right as well as distal main left pulmonary artery as well as the more distal pulmonar y arterial structures. There is no evidence for saddle embolus. There is no evidence of this time for right heart strain. No focal infiltrate. Limited evaluation the upper abdomen is unremarkable. There are moderate degenerative changes of the thoracic spine with no evidence for compression deformity. IMPRESSION: Extensive bilateral pulmonary emboli as discussed. The above report was generated using voice recognition software. It may contain grammatical, syntax or spelling errors. Electronically signed by: Fred Thrasher M.D. 05/13/2019 11:27 AM
[2019-05-13 11:50] LABS: INR 1.1 (0.9-1.1); Partial Thromboplastin Time 28.2 Seconds (21.0-31.0); Prothrombin Time 10.8 Seconds (9.0-12.0)
--- NOTE | 2019-05-13 11:53 | History & Physical Report ---
Date of Service May 13, 2019 Assessment & Plan (1) Bilateral pulmonary embolism: - Admit to PCU - CTA reviewed showing extensive pulmonary emboli bilaterally, distal main right as well as distal main left pulmonary artery as well as more distal pulmonary arterial structures. No saddle embolus. No right heart strain. - Multiple family members with clotting disorders, sister has Factor 3 gene deficiency, will order hypercoagulably workup- labs to be drawn prior to heparin. The patient has never before had a clot of any kind. She has not had genetic workup prior to this. - Continue O2 prn - Heparin gtt after coag workup as above - Check 2 D echo (2) DVT (deep venous thrombosis): -CT abdomen pelvis reviewed: Shows DVT present within the right external iliac, right common femoral, right superficial femoral veins (3) Elevated troponin: - Elevated upon admission at 0.5, will trend x 2 more sets (4) Hypertension: - Cont metoprolol succinate 25 mg QAM (5) Rheumatoid arthritis: - Chronic, continue on methotrexate, last taken 05/10 (6) Migraine headache: - Continue trokendi 100 mg PO HS, will bring in from home as brand not in house, gets somnolent with topamax brand. Continue imitrex prn - Hold naproxen - uses also for RA, if worsening pain can restart pending discussion of gi bleed risk CODE: FULL Dispo: From home, likely to remain in the hospital for at least 2 days. History of Present Illness Primary Care Provider: Jasmeet Awad MD This is a 53 yo F with PMHx of migraine, HTN, RA on methotrexate, GERD, scoliosis, obesity, recently had total hip surgeries within the past year, had the Left total hip in October 2018 and the Right total hip in February 2019. She had issues with wound closure with the right hip and was on a wound vac, however s/p skin grafting has had good closure of the wound. She is currently on doxycycline for this. Patient reports that she developed worsening shortness of breath this morning upon waking, she was unable to walk to the bathroom which is only a small distance away without becoming extremely short of breath. She admits to palpitations when doing something strenuous, such as even using the bedpan in the ER. This morning she also noticed that her RLE appeared to be slightly more swollen, but denies any right calf pain. Pt has a family history of multiple family members with clotting disorders. She reports her sister has been tested genetically and has Factor 3 gene deficiency. Patient denies any personal history of clots in her past. 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 Pt with elevated troponin at 0.593, and found to have extensive bilateral PE on CTA and extensive R ext iliac, R deep and superficial femoral. Allergies Allergy/AdvReac Type Severity Reaction Status Date / Time SENDY Inhibitors Allergy Mild Cough Verified 05/13/19 10:21 adhesive tape Allergy Mild SKIN Verified 05/13/19 10:21 IRRITATION Home Medications Home Medications Medication Instructions Recorded Confirmed Type Trokendi XR 100 mg PO HS 09/21/18 05/13/19 History acetaminophen [Tylenol] 1 - 2 tab PO Q6H PRN 09/21/18 05/13/19 History ascorbic acid (vitamin C) [Vitamin 1 tab PO QAM 09/21/18 05/13/19 History C] cholecalciferol (vitamin D3) 3,000 unit PO QAM 09/21/18 05/13/19 History [Vitamin D3] fluticasone propionate [Flonase 1 spray INTRANASAL BID 09/21/18 05/13/19 History Allergy Relief] folic acid 0.8 mg PO QAM 09/21/18 05/13/19 History magnesium oxide 400 mg PO QAM 09/21/18 05/13/19 History metoprolol succinate 25 mg PO QAM 09/21/18 05/13/19 History naproxen [Naprosyn] 500 mg PO BID 09/21/18 05/13/19 History ranitidine HCl 300 mg PO BID 09/21/18 05/13/19 History sumatriptan succinate [Imitrex] 1 tab PO UD PRN 09/21/18 05/13/19 History oxycodone 5 - 10 mg PO Q4H PRN #40 tab 03/02/19 05/13/19 Rx methotrexate sodium 2.5 mg tablet 20 mg PO WEEKLY tab 03/20/19 05/13/19 History doxycycline hyclate 100 mg capsule 100 mg PO BID #60 cap 05/07/19 05/13/19 Rx Past Med/Surg History Medical History GERD (gastroesophageal reflux disease) (Chronic) CONTROLLED Hypertension (Chronic) Migraine (Chronic) Obesity (Chronic) Osteoarthritis (Chronic) Rheumatoid arthritis (Chronic) ON MTX Scoliosis (Chronic) Surgical History History of right hip replacement History of tooth extraction (Resolved) [place] Teeth Extraction History of total hip arthroplasty (Chronic) Left JOHANNY: 10/26/18: SAB x1 at L3-L4 at [facility] Family History Father Myocardial infarction Heart disease Clotting disorder Mother Myocardial infarction Cerebral aneurysm Heart disease Clotting disorder Hypertension Family/Other No problems noted. Brother Deep vein thrombosis Clotting disorder Sister Deep vein thrombosis Social History Preferred Language: Ukrainian Communication Ability: Effective Visual Impairment: No Limitations Hearing Ability: Normal Crude Oil Treater Required: No Beliefs That Will Affect Care: None marital status: Single Current Living Situation: Alone current occupational status: employed Other Information That Helps Us Care for You: No Feels Safe at Home: Yes Safety Concerns: Feels Safe At This Time Smoking Status: Never smoker Second Hand Exposure: Yes ; Hx Alcohol Use: No Hx Substance Use: No Childhood Exposure to Second-Hand Smoke: Yes Dental Care, Regularly: Yes Seatbelt Use: always Sunscreen Use: Yes Review of Systems Review of Systems: Constitutional: No fever, sweats or chills Eyes: No diplopia, no worsening or blurred vision ENT: normal hearing, no trouble swallowing Respiratory: No cough, sputum, + dyspnea on exertion Cardiovascular: No chest pain, tightness, + palpitations on exertion Abdomen: No pain, nausea, vomiting, diarrhea or constipation Musculoskeletal: No joint pain, calf pain, + RLE swelling Neurologic: No weakness, numbness/tingling, or balance problems Psychiatric: No anxiety or depression Skin: No rash or itch Physical Exam Physical Exam: General: awake, alert, no apparent distress, + obese Head: Normocephalic, atraumatic ENT: PERRL, EOMI, no pharyngeal exudate, mucous membranes moist Chest: Clear to auscultation, on room air, no adventitious breath sounds Cardiac: Sinus tach, no murmur, no JVD, normal peripheral pulses, good capillary refill Abdominal: NABS x 4 quadrants, soft, nondistended, nontender to palpation, no rebound, guarding or tenderness Extremities: Normal inspection, + trace of right-sided peripheral edema, no edema on left, no erythema, calfs nontender to palpation Psych: Normal mood and affect Neuro: AAO x 3, no gross motor deficits, speech is clear, no peripheral sensory deficits Skin: no rash or erythema Constitutional: WD/WN, vitals as above Eyes: normal visual luna by confrontation and + anicteric sclerae Neck: normal visual inspection and trachea midline Respiratory: normal respiratory effort; no respiratory distress Auscultation: + crackles (trace in bases); no wheezes Cardiovascular: Rate/Rhythm: regular rate and regular rhythm Gastrointestinal (Abdomen): Inspection/Auscultation: abdomen not distended Percussion/Palpation: abdomen soft; abdomen nontender Musculoskeletal: Head/Neck/Chest: normocephalic and head atraumatic Neg for peripheral LE edema, + pedal pulses Skin: no rashes, warm and dry Neurologic: awake; not confused Speech / Cognition: normal speech Psychiatric: A+Ox3, euthymic affect Lymphatic: Exam as done by Margarita Brand DO Results & Data Vital Signs (Past 12 Hours) Vital Signs Temp Pulse Pulse Resp BP BP Pulse Ox 05/13/19 11:31 102 H 20 137/91 97 05/13/19 09:34 36.4 C L 113 H 24 141/90 H 92 Diagnostic Findings XR chest 1V portable CLINICAL HISTORY: Chest Pain dyspnea COMPARISON STUDY: 09/26/2018 FINDINGS: The bones soft tissues and hemidiaphragms are normal. The cardiomediastinal silhouette is normal. The lungs are clear. The pulmonary vasculature is normal. IMPRESSION: Negative chest. CT SCAN OF THE ABDOMEN AND PELVIS WITH IV CONTRAST CLINICAL HISTORY: Dyspnea. Tachycardia. Lower extremity edema. COMPARISON STUDY: No priors. TECHNIQUE: Following the IV administration of 119 cc of Optiray 320, CT scan of the abdomen and pelvis is performed from the lung bases to the proximal femora. Images are reviewed in the axial, sagittal, and coronal planes. IV contrast was administered without complication. A dose lowering technique was utilized adhering to the principles of ALARA. CT DOSE: 1343.54 mGy.cm FINDINGS: Lung bases: The heart is normal in size and without pericardial effusion. The lung bases are clear. Pulmonary emboli are identified within branches of the right lower lobe pulmonary artery. Liver: The contrast-enhanced liver is normal in size, contour, and attenuation. There is no intrahepatic biliary ductal dilatation. The hepatic veins and portal veins are patent. Fatty infiltration is noted adjacent to falciform ligament. Gallbladder: Unremarkable. Spleen: Normal in size and attenuation. Pancreas: Unremarkable. Adrenal glands: Unremarkable. Kidneys: The contrast enhanced kidneys are normal in size and without hy dronephrosis. The kidneys enhance symmetrically. Abdominal vasculature: The abdominal aorta is normal in course and caliber. Deep venous thrombosis is present within the right external iliac vein and extends into the right common femoral and superficial femoral veins. Bowel: There is no bowel obstruction. Fecal retention is noted in the colon. The appendix is well-visualized and normal. Peritoneum: There is no intraperitoneal free air or abdominal ascites. Lymphadenopathy: None. Pelvic viscera: Evaluation of the pelvis is degraded by streak artifact from bilateral hip arthroplasties. The bladder is normal as visualized. Uterine fibroids are suspected. No adnexal lesion is seen. Postoperative change is noted in the right groin. Skeletal structures: The skeletal structures are osteopenic. There is moderate lumbosacral spondylosis and scoliosis. No lytic or blastic lesions are seen. Bilateral hip arthroplasties are in place. IMPRESSION: 1. There are no acute infectious or inflammatory findings in the abdomen or pelvis. 2. Pulmonary emboli are present within branches of the right lower lobe pulmonary artery. 3. Deep venous thrombosis is present within the right external iliac, right common femoral, and visualized right superficial femoral veins. CT angio chest PE protocol CT DOSE: HISTORY: Chest pain. Dyspnea. PE TECHNIQUE: Multiaxial CT images of the chest were performed following the intravenous administration of contrast to evaluate the pulmonary arteries. Maximal intensity projection images were also obtained. A dose lowering technique was utilized adhering to the principles of ALARA. COMPARISON STUDY: None. FINDINGS: This study is consistent with that of extensive bilateral pulmonary emboli. This involves the distal main right as well as distal main left pulmonary artery as well as the more distal pulmonary arterial structures. There is no evidence for saddle embolus. There is no evidence of this time for right heart strain. No focal infiltrate. Limited evaluation the upper abdomen is unremarkable. There are moderate degenerative changes of the thoracic spine with no evidence for compression deformity. IMPRESSION: Extensive bilateral pulmonary emboli as discussed. Code Status & VTE Plan Code Status Full code-discussed with the patient at bedside Supervising Physician Co-Signing Physician Notes Pt seen and examined by me. Pt had sudden onset SOB today. She states this is no longer present at rest, but did have some SOB when she was moving around to use the bedpan. No chest pain. Has been tolerating PO without issue. Agree with HPI/ROS as noted by PA See above for my exam in PE section Agree with plan as outlined above extensive b/l PE with extensive R LE DVT noted Started on heparin in the ED, will continue Hypercoag panel pending Pt with extensive FHx of clotting, however she has not been tested herself Pt with no prior hx of clotting or other bleeding issues Trop with mild elevation, serials pending EKG with sinus tachy Pt with complications from recent hip surgery, on abx, follows with [facility] Had been on aspirin x6 weeks, but not currently PG Care Time/CCT Total # of Minutes Spent Total Time Spent with Patient: Total time spent is greater than 50% in coordination of care (as documented) at patient's floor/unit and/or counseling patient:
[2019-05-13] MEDS ORDERED: HEPARIN SOD (PORCINE) 1000 UNIT/ML 10 ML VIAL ONE (13:04)
[2019-05-13] MEDS: HEPARIN SODIUM/DEXTROSE 25,000 UNITS/500 ML BAG IV SCH (13:12)
[2019-05-13] MEDS ORDERED: SUMAtriptan succinate 100 MG TAB PO PRN (15:02)
[2019-05-13] MEDS ORDERED: ONDANSETRON INJ 2 MG/ML 2 ML VIAL IV PRN (15:02)
[2019-05-13] MEDS ORDERED: OXYCODONE HCL IR 5 MG TAB (IMMEDIATE RELEASE) PO PRN (15:19)
--- NOTE | 2019-05-13 18:42 | Emergency Department Note ---
Entered by Val Mendosa acting as a scribe for Shine Ceja MD History of Present Illness General Chief complaint: Shortness of Breath/Dyspnea Stated complaint: SOB, RACING HEART Time Seen by Provider: 05/13/19 09:48 Source: patient History of Present Illness Onset (ago): day(s) (last night) Location: chest Pain Consistency: + other (sudden) Maximum Pain Intensity: 1 Quality: + other (shortness of breath) Exacerbated By: + movement (exertion) Associated symptoms: + denies other symptoms (diarrhea) and + other (racing heart, right leg swelling, loose stools, frequently moving her bowels); no fever/chills (fever), no loss of appetite and no nausea/vomiting The patient is a 53 year old female who presents to the Emergency Room with complaints of sudden shortness of breath starting last night. The patient states that she had her right hip replaced on February 28. She states that since then she has been going to physical therapy and been up and about with just a cane. She reports that she did have an infection in the incision and was unable to heal properly at one point. She states that 3 weeks ago she had to have a skin graft and 2 weeks ago she had the wound vac removed. She states that the wound was 4.3 cm, but is now down to 3. She notes that she is on Doxycycline for the infection and they are pleased with how it has been healing recently. 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 She states that last night she lost her phone and while looking for it, started having shortness of breath and the feeling of her heart racing. She states that she thought it was just due to anxiety from losing her phone because once she found it in the couch cushions and sat down, the symptoms went away. She states that this morning she became concerned though because every time she got up, even to just use the restroom, the shortness of breath and racing heart came back. She reports that this is when she decided to come to the ED. The patient notes that she has an extensive family history of blood clots and her father from one. She reports that she did wear her HAI stockings for 6 weeks after surgery, but noticed this morning that her right leg was swollen. She notes that it has not been like that since the surgery. The patient notes that she has had some loose stools and frequently moves her bowels, but assumed it is due to her taking Doxycycline. The patient denies fever, nausea, vomiting, loss if appetite, and diarrhea. Home Medications Home Medications Medication Instructions Recorded Confirmed Type Trokendi XR 100 mg PO HS 09/21/18 05/13/19 History acetaminophen [Tylenol] 1 - 2 tab PO Q6H PRN 09/21/18 05/13/19 History ascorbic acid (vitamin C) [Vitamin 1 tab PO QAM 09/21/18 05/13/19 History C] cholecalciferol (vitamin D3) 3,000 unit PO QAM 09/21/18 05/13/19 History [Vitamin D3] fluticasone propionate [Flonase 1 spray INTRANASAL BID 09/21/18 05/13/19 History Allergy Relief] folic acid 0.8 mg PO QAM 09/21/18 05/13/19 History magnesium oxide 400 mg PO QAM 09/21/18 05/13/19 History metoprolol succinate 25 mg PO QAM 09/21/18 05/13/19 History naproxen [Naprosyn] 500 mg PO BID 09/21/18 05/13/19 History ranitidine HCl 300 mg PO BID 09/21/18 05/13/19 History sumatriptan succinate [Imitrex] 1 tab PO UD PRN 09/21/18 05/13/19 History oxycodone 5 - 10 mg PO Q4H PRN #40 tab 03/02/19 05/13/19 Rx methotrexate sodium 2.5 mg tablet 20 mg PO WEEKLY tab 03/20/19 05/13/19 History doxycycline hyclate 100 mg capsule 100 mg PO BID #60 cap 05/07/19 05/13/19 Rx Allergies Allergy/AdvReac Type Severity Reaction Status Date / Time SENDY Inhibitors Allergy Mild Cough Verified 05/13/19 10:21 adhesive tape Allergy Mild SKIN Verified 05/13/19 10:21 IRRITATION Past Med/Surg History Medical History GERD (gastroesophageal reflux disease) (Chronic) CONTROLLED Hypertension (Chronic) Migraine (Chronic) Obesity (Chronic) Osteoarthritis (Chronic) Rheumatoid arthritis (Chronic) ON MTX Scoliosis (Chronic) Surgical History History of right hip replacement History of tooth extraction (Resolved) [place] Teeth Extraction History of total hip arthroplasty (Chronic) Left JOHANNY: 10/26/18: SAB x1 at L3-L4 at [facility] Family History Father Myocardial infarction Heart disease Clotting disorder Mother Myocardial infarction Cerebral aneurysm Heart disease Clotting disorder Hypertension Family/Other No problems noted. 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 and A total of 10 systems reviewed and were otherwise negative Physical Exam Vital Signs Vital Signs - 24 hr 05/13/19 09:34 05/13/19 09:54 05/13/19 11:31 Temperature 36.4 C L Temperature Source Oral Pulse Rate 113 H Pulse Rate [Right Finger] 102 H Pulse Rhythm Regular Pulse Strength Normal Respiratory Rate 24 20 Respiratory Effort / Characteristics Non-Labored Spontaneous Non-Labored Spontaneous Non-Labored Respiratory Depth Normal Normal Normal Respiratory Pattern Regular Regular Blood Pressure 141/90 H Blood Pressure [Right Arm] 137/91 Blood Pressure Mean 107 Blood Pressure Mean [Right Arm] 106 Blood Pressure Position Sitting Pulse Oximetry 92 97 Oxygen Delivery Method Room Air Room Air Room Air Sepsis Recent Fever Within 48 Hours No Sepsis New/Unexplained Change in Mental Status No Sepsis Action Taken by Nursing No Action Required GENERAL: Awake, alert, in no distress HENT: Normocephalic, atraumatic. Oropharynx with dry mucous membranes and otherwise unremarkable. EYES: Normal conjunctiva. Sclera non-icteric. NECK: Supple. No nuchal rigidity. FROM. No JVD. RESPIRATORY: CTAB. CARDIAC: Tachycardic rate, normal rhythm. Extremities warm and well perfused. Pulses equal. ABDOMEN: Soft, non-distended. No tenderness to palpation. No rebound or guarding. No masses. RECTAL: Deferred. MUSCULOSKELETAL: Chest examination reveals no tenderness. The back is symmetrical on inspection without obvious abnormality. There is no CVA tenderness to palpation. No joint edema. LOWER EXTREMITIES: 4 cm incision site healing appropriately post treatment on right hip. No erythema, warmth, tenderness, or crepitus. 1+ edema to the right lower extremity without tenderness to the calf. Calves are equal size bilaterally and non-tender. No discoloration. NEURO: Normal sensorium. No sensory or motor deficits noted. SKIN: No rash or jaundice noted. Course Course 1016: The patient was evaluated in room C4. A complete history and physical exam was performed. 1127: I discussed the patient's case with Dr. Thrasher- Radiology. He called to inform me that the patient's CT shows she has bilateral PEs. 1140: I discussed the patient's case with Dr. Brand- [facility] Hospitalist. She will evaluate the patient for further management. 1142: I reevaluated the patient and updated her on her test results. I discussed the treatment plan with her. She verbally agrees and understands. Administered Medications Acetaminophen (Tylenol) 650 mg PO Q4H PRN PRN Reason: Moderate Pain Stop: 06/12/19 15:01 Last Admin: 05/13/19 22:03 Dose: 650 mg Documented by: [id number] Doxycycline Hyclate (Vibramycin) 100 mg PO BID [facility] Stop: 05/23/19 20:59 Last Admin: 05/13/19 21:01 Dose: 100 mg Documented by: [id number] Fluticasone Propionate (Flonase) 1 sprays NA BID [facility] Stop: 06/12/19 20:59 Last Admin: 05/13/19 20:58 Dose: 1 sprays Documented by: [id number] Heparin Sodium/Dextrose (Heparin Sodium/Dextrose) 25,000 units in 500 mls @ 24 mls/hr IV .[id number] [facility]; Protocol Stop: 06/12/19 11:44 Last Titration: 05/13/19 23:10 Dose: 1,000 units/hr, 20 mls/hr Documented by: [id number] Cosigned by: [id number] Titration: 05/13/19 22:00 Dose: 1,000 units/hr, 20 mls/hr Documented by: [id number] Cosigned by: [id number] Titration: 05/13/19 21:08 Dose: 0 units/hr, 0 mls/hr Documented by: [id number] Cosigned by: [id number] Admin: 05/13/19 13:12 Dose: 1,200 units/hr, 24 mls/hr Documented by: [id number] Cosigned by: [id number] Ioversol (Optiray 320 125ml) 119 ml IV ONCE PRN PRN Reason: Interaction Checking Stop: 05/17/19 11:07 Last Admin: 05/13/19 11:08 Dose: 119 ml Documented by: [id number] Ranitidine HCl (Zantac) 300 mg PO BID [facility] Stop: 06/12/19 20:59 Last Admin: 05/13/19 21:01 Dose: 300 mg Documented by: [id number] Topiramate (Qudexy Xr) 1 ea PO HS [facility] Stop: 06/12/19 20:29 Last Admin: 05/13/19 21:00 Dose: 1 ea Documented by: [id number] Discontinued Medications Heparin Sodium (Porcine) (Heparin Iv Bolus) Confirm Administered Dose 10,000 units .ROUTE .STK-MED ONE Stop: 05/13/19 13:05 Last Admin: 05/13/19 13:11 Dose: 5,000 units Documented by: [id number] Cosigned by: [id number] Heparin Sodium/Dextrose () 1 ea IV NOW STA; Protocol Stop: 05/13/19 11:42 Last Admin: 05/13/19 16:34 Dose: Not Given Documented by: [id number] Sodium Chloride (Nss 1000ml) 1,000 mls @ 999 mls/hr IV .Q1H1M ONE Stop: 05/13/19 11:28 Last Infusion: 05/13/19 14:18 Dose: 0 mls/hr Documented by: [id number] Admin: 05/13/19 10:32 Dose: 999 mls/hr Documented by: [id number] Critical Care Time Critical Care Time: Yes Total Critical Care Time: 50 I have personally spent greater than 50 minutes of critical care time in the direct management of this patient. This includes bedside care, interpretation of diagnostic studies, and testing, discussion with consultants, patient, and family members, and other required patient management activities. This 50 minutes is in excess of all separately billable procedures. Medical Decision Making Differential Diagnosis Etiologies such as DVT, vascular ischemia, radiculopathy, fracture, hematoma/contusion, myositis, abscess, septic arthritis cellulitis, joint effusion, trauma, lymphedema, idiopathic, CHF, as well as others were entertained. Medical Records Attestation: I reviewed the patient's medical records. Home Medications Current Medication List: was personally reviewed by me Laboratory Data Attestation: I reviewed the patient's lab results. Result diagrams: 05/13/19 10:10 05/13/19 10:10 Lab Results 05/13/19 05/13/19 05/13/19 Range/Units 10:10 10:10 10:11 WBC 8.17 (4.8-10.8) K/uL RBC 4.39 (4.2-5.4) M/uL Hgb 13.7 (12.0-16.0) g/dL Hct 41.4 (37-47) % MCV 94.3 (80-100) fL MCH 31.2 (25-34) pg MCHC 33.1 (32-36) g/dL RDW Std Deviation 55.6 H (36.4-46.3) fL RDW Coeff of Viry 16.1 H (11.5-14.5) % Plt Count 208 (130-400) K/uL MPV 10.0 (7.4-10.4) fL Immature Gran % (Auto) 0.1 % Neut % (Auto) 89.7 % Lymph % (Auto) 6.5 % [place] % (Auto) 2.8 % Eos % (Auto) 0.5 % Baso % (Auto) 0.4 % Immature Gran # (Auto) 0.01 (0.00-0.02) K/uL Neut # (Auto) 7.33 H (1.4-6.5) K/uL Lymph # (Auto) 0.53 L (1.2-3.4) K/uL [place] # (Auto) 0.23 (0.11-0.59) K/uL Eos # (Auto) 0.04 (0-0.5) K/uL Baso # (Auto) 0.03 (0-0.2) K/uL PT 10.8 (9.0-12.0) Seconds INR 1.1 (0.9-1.1) APTT 28.2 (21.0-31.0) Seconds PTT Ratio 1.0 Sodium 141 (136-145) mmol/L Potassium 3.7 (3.5-5.1) mmol/L Chloride 109 H (98-107) mmol/L Carbon Dioxide 25 (21-32) mmol/L Anion Gap 7.0 (3-11) BUN 31 H (7-18) mg/dl Creatinine 0.96 (0.6-1.2) mg/dl Est Cr Clr Drug Dosing 71.8 ml/min Est GFR ( Amer) 78.8 Est GFR (Non-Af Amer) 68.0 BUN/Creatinine Ratio 32.4 H (10-20) Glucose 89 (70-99) mg/dl Calcium 9.3 (8.5-10.1) mg/dl Phosphorus 3.0 (2.5-4.9) mg/dl Magnesium 2.0 (1.8-2.4) mg/dl Total Bilirubin 0.6 (0.2-1) mg/dl AST 19 (15-37) U/L ALT 22 (12-78) U/L Alkaline Phosphatase 161 H (45-117) U/L Troponin I 0.593 H* (0-0.045) ng/ml Total Protein 7.7 (6.4-8.2) gm/dl Albumin 4.1 (3.4-5.0) gm/dl Globulin 3.6 (2.5-4.0) gm/dl Albumin/Globulin Ratio 1.1 (0.9-2) Lipase 77 (73-393) U/L Imaging Data Radiologist's Impression: Radiology results as stated below per my review and the radiologist's interpretation: XR chest 1V portable CLINICAL HISTORY: Chest Pain dyspnea COMPARISON STUDY: 09/26/2018 FINDINGS: The bones soft tissues and hemidiaphragms are normal. The cardiomediastinal silhouette is normal. The lungs are clear. The pulmonary vasculature is normal. IMPRESSION: Negative chest. The above report was generated using voice recognition software. It may contain grammatical, syntax or spelling errors. Electronically signed by: Fred Thrasher M.D. 05/13/2019 10:[address] angio chest PE protocol CT DOSE: HISTORY: Chest pain. Dyspnea. PE TECHNIQUE: Multiaxial CT images of the chest were performed following the intravenous administration of contrast to evaluate the pulmonary arteries. Maxi mal intensity projection images were also obtained. A dose lowering technique was utilized adhering to the principles of ALARA. COMPARISON STUDY: None. FINDINGS: This study is consistent with that of extensive bilateral pulmonary emboli. This involves the distal main right as well as distal main left pulmonary artery as well as the more distal pulmonary arterial structures. There is no evidence for saddle embolus. There is no evidence of this time for right heart strain. No focal infiltrate. Limited evaluation the upper abdomen is unremarkable. There are moderate degenerative changes of the thoracic spine with no evidence for compression deformity. IMPRESSION: Extensive bilateral pulmonary emboli as discussed. The above report was generated using voice recognition software. It may contain grammatical, syntax or spelling errors. Electronically signed by: Fred Thrasher M.D. 05/13/2019 11:[address] SCAN OF THE ABDOMEN AND PELVIS WITH IV CONTRAST CLINICAL HISTORY: Dyspnea. Tachycardia. Lower extremity edema. COMPARISON STUDY: No priors. TECHNIQUE: Following the IV administration of 119 cc of Optiray 320, CT scan of the abdomen and pelvis is performed from the lung bases to the proximal femora. Images are reviewed in the axial, sagittal, and coronal planes. IV contrast was administered without complication. A dose lowering technique was utilized adhering to the principles of ALARA. CT DOSE: 1343.54 mGy.cm FINDINGS: Lung bases: The heart is normal in size and without pericardial effusion. The lung bases are clear. Pulmonary emboli are identified within branches of the right lower lobe pulmonary artery. Liver: The contrast-enhanced liver is normal in size, contour, and attenuation. There is no intrahepatic biliary ductal dilatation. The hepatic veins and portal veins are patent. Fatty infiltration is noted adjacent to falciform ligament. Gallbladder: Unremarkable. Spleen: Normal in size and attenuation. Pancreas: Unremarkable. Adrenal glands: Unremarkable. Kidneys: The contrast enhanced kidneys are normal in size and without hydronephrosis. The kidneys enhance symmetrically. Abdominal vasculature: The abdominal aorta is normal in course and caliber. Deep venous thrombosis is present within the right external iliac vein and extends into the right common femoral and superficial femoral veins. Bowel: There is no bowel obstruction. Fecal retention is noted in the colon. The appendix is well-visualized and normal. Peritoneum: There is no intraperitoneal free air or abdominal ascites. Lymphadenopathy: None. Pelvic viscera: Evaluation of the pelvis is degraded by streak artifact from pam ateral hip arthroplasties. The bladder is normal as visualized. Uterine fibroids are suspected. No adnexal lesion is seen. Postoperative change is noted in the right groin. Skeletal structures: The skeletal structures are osteopenic. There is moderate lumbosacral spondylosis and scoliosis. No lytic or blastic lesions are seen. Bilateral hip arthroplasties are in place. IMPRESSION: 1. There are no acute infectious or inflammatory findings in the abdomen or pelvis. 2. Pulmonary emboli are present within branches of the right lower lobe pulmonary artery. 3. Deep venous thrombosis is present within the right external iliac, right common femoral, and visualized right superficial femoral veins. Electronically signed by: Palomo Landeros M.D. 05/13/2019 11:27 AM ECG Data Attestation: I personally reviewed and interpreted this ECG as follows: Indication: + SOB/dyspnea Rate (beats per minute): 104 Rhythm: + sinus tachycardia ECG [place]: + Normal ECG ST segments: no ST depression and no ST elevation ECG Findings: + Other (nonspecific ST abnormality, QT-c 423); no PACs and no PVCs Blood Pressure Blood Pressure Findings: Elevated blood pressure Blood Pressure Disposition: further management by hospitalist RAUL Mora The patient is a pleasant 53-year-old woman who presents emergency department with acute onset shortness of breath that began last night in the setting of having a right hip replacement complicated by postoperative infection per hpi. On arrival the patient is in no acute distress, afebrile with heart rate in the 100s but vital signs otherwise stable. EKG without overt acute ischemia. Chest x-ray negative for pneumonia. CTA of the chest demonstrates extensive bilateral pulmonary emboli involving the distal main right as well as distal left pulmonary artery. There is no evidence of saddle embolus or CT evidence of heart strain. CT abdomen pelvis also demonstrates DVT within the right external iliac, right common femoral and right superficial femoral veins. WBC, H/H and platelets within normal limits. Chemistry without acidosis. Initial troponin is elevated at 0.5. Findings were reviewed with the patient and she is agreeable with plan for admission and anticoagulation. Case was discussed with Dr. Margarita Brand, [facility] hospitalist, who will evaluate the patient for admission. We agreed to proceed with treatment with IV heparin at this time. Impression & Plan Bilateral pulmonary embolism, Elevated troponin, Shortness of breath, Sinus tachycardia Discharge Plan Visit Data *Final* Discharge Date/Time: 05/13/19 14:20 Chief Complaint: Shortness of Breath/Dyspnea Stated Complaint: SOB, RACING HEART ED Provider: Shine Ceja Discharge Problem: Bilateral pulmonary embolism, Elevated troponin, Shortness of breath, Sinus tachycardia Patient Disposition: Admitted As Inpatient Discharge Instructions Interventions: ED Discharge Assessment Last Done: 05/13/19 14:20 The scribe's documentation has been prepared under my direction and personally reviewed by me in its entirety. I confirm that the note above accurately reflects all work, treatment, procedures, and medical decision making performed by me.
[2019-05-13 20:33] LABS: Partial Thromboplastin Ratio 4.7
[2019-05-13 20:54] LABS: Partial Thromboplastin Time 127.8 Seconds (21.0-31.0)
[2019-05-13] MEDS: FLUTICASONE PROPIONATE NA SPR 16 GM BTL SCH (20:58)
[2019-05-13] MEDS: TOPIRAMATE PO SCH (21:00)
[2019-05-13] MEDS: DOXYCYCLINE HYCLATE 100 MG CAP PO SCH (21:01)
[2019-05-13] MEDS: ACETAMINOPHEN 325 MG TAB PO PRN (22:03)
[2019-05-14 03:12] LABS: Hematocrit (blood only) 35.4 % (37-47); Hemoglobin 11.4 g/dL (12.0-16.0); Mean Corpuscular Hemoglobin 30.2 pg (25-34); Mean Corpuscular Hgb Conc 32.2 g/dL (32-36); Mean Corpuscular Volume 93.9 fL (80-100); Mean Platelet Volume 10.5 fL (7.4-10.4); Platelet Count 200 K/uL (130-400); RDW Coefficient of Variation 16.3 % (11.5-14.5); RDW Standard Deviation 55.5 fL (36.4-46.3); Red Blood Count 3.77 M/uL (4.2-5.4); White Blood Count 5.75 K/uL (4.8-10.8)
[2019-05-14 03:37] LABS: Partial Thromboplastin Ratio 3.3
[2019-05-14 03:52] LABS: Partial Thromboplastin Time 88.8 Seconds (21.0-31.0)
[2019-05-14] MEDS ORDERED: METOPROLOL SUCC 25MG EXT REL TAB PO SCH (09:00)
[2019-05-14] MEDS: DOXYCYCLINE HYCLATE 100 MG CAP PO SCH ×2 (09:28→20:39)
[2019-05-14] MEDS: ASCORBIC ACID 500 MG TAB PO SCH (09:29)
[2019-05-14] MEDS: CHOLECALCIFEROL 1,000 UNITS TAB PO SCH (09:29)
[2019-05-14] MEDS: FLUTICASONE PROPIONATE NA SPR 16 GM BTL SCH ×2 (09:29→20:34)
[2019-05-14] MEDS: FOLIC ACID 400 MCG TAB PO SCH (09:29)
[2019-05-14 12:34] LABS: Partial Thromboplastin Time 54.7 Seconds (21.0-31.0)
[2019-05-14] MEDS: MAGNESIUM OXIDE 400 MG TAB PO SCH (13:05)
[2019-05-14] MEDS: HEPARIN SODIUM/DEXTROSE 25,000 UNITS/500 ML BAG IV SCH (16:08)
[2019-05-14] MEDS ORDERED: SODIUM CHLORIDE 0.9% 500 ML IV SCH (18:00)
--- NOTE | 2019-05-14 18:07 | Hospitalist Progress Note ---
Date of Service May 14, 2019 Assessment & Plan (1) Bilateral pulmonary embolism: Bilateral pulmonary emboli due to right external iliac, right common femoral DVT's - CTA reviewed showing extensive pulmonary emboli bilaterally, distal main right as well as distal main left pulmonary artery as well as more distal pulmonary arterial structures. No saddle embolus. - Not hypoxic.SHe is hemodynamically stable although BP slightly lower in the afternoon--> give 500mL bolus NS -cause likely recent hip surgery, has RA, has been quite sedentary, and possible inherited hypercoagulable state with sister with Prothrombin gene mutation (shows me her sister's lab results) and a brother with DVT, Father with PE who at age 57 - discussed options for anticoagulation and pt would like to go with Eliquis- start at 10mg po bid x 7 days and then convert to 5mg po bid - dc Heparin gtt ECHO with right heart strain and mildly decreased RV function, Pulm HTN -f/u on hypercoag workup when results available -will need at least 6 months AC and possibly lifelong prophylaxis if has inherited disorder (2) DVT (deep venous thrombosis): -CT abdomen pelvis reviewed: Shows DVT present within the right external iliac, right common femoral, right superficial femoral veins AC as above (3) Elevated troponin: - Elevated at 0.5 and then trended downward, secondary to PE, not ACS No ischemia on ECG (4) Acute right-sided heart failure: as above recommend repeat ECHO in a few months to see if improving (5) Pulmonary hypertension: as above (6) Non-healing surgical wound: right anterior hip Secondary to hip replacement surgery and MRSA infection -continue doxy 100mg po bid Continue wound care -would recommend HOLDING MTX if possible while wound healing (7) Methotrexate, senior care, current use: for RA, has been continued on MTX despite non-healing wound and infection in hip--> recommend stopping MTX (8) Hypertension: - Cont metoprolol succinate 25 mg QAM with hold parameters (9) Rheumatoid arthritis: - Chronic, recommend holding methotrexate as above-- last taken 05/10 (10) Obesity: BMI 34.0 Recommend weight loss (11) Migraine headache: - Continue trokendi 100 mg PO HS, will bring in from home as brand not in house, gets somnolent with topamax brand. Continue imitrex prn - Hold naproxen - uses also for RA, if worsening pain can restart pending discussion of gi bleed risk CODE: FULL Dispo: From home, continued stay for 1-2 more days until improved, able to ambulate without dyspnea Subjective Feeling better, less SOB, no chest pain now or ever. RLE pain and swelling slightly improved. No abd pain or nausea, no h/o bleeding from anywhere. No current bleeding issues since being on heparin gtt. Tele with ST and NSR rates 80-130s briefly Review of Systems Review of Systems: All systems reviewed & are unremarkable except as noted in HPI & below Physical Exam Constitutional: WD/WN, vitals as above Eyes: + anicteric sclerae ENMT: external ear and nose normal, oropharynx normal Neck: trachea midline, no thyromegaly Respiratory: normal respiratory effort, lungs clear to auscultation Cardiovascular: Rate/Rhythm: regular rate and regular rhythm Extremities: + edema (2+ edema entire RLE with mild erythema) Gastrointestinal (Abdomen): normal bowel sounds, soft, nontender, no hepatosplenomegaly Musculoskeletal: Extremities: extremities normal to inspection; no cyanosis and no clubbing Skin: no rashes, warm and dry Neurologic: moves all extremities and awake; no focal motor deficits Psychiatric: A+Ox3, euthymic affect Results & Data Vital Signs (Past 12 Hours) Vital Signs Temp Pulse Resp BP Pulse Ox 05/14/19 15:34 36.5 C 92 H 18 98/66 L 95 05/14/19 11:39 36.7 C 93 H 18 113/81 96 Diagnostic Findings ECHO with mild RV sys dysfunction, elevated RVSP, preserved EF PG Care Time/CCT Total # of Minutes Spent Total Time Spent with Patient: Total time spent is greater than 50% in coordination of care (as documented) at patient's floor/unit and/or counseling patient:
[2019-05-14] MEDS: TOPIRAMATE PO SCH (20:33)
[2019-05-14] MEDS: APIXABAN 5 MG TABLET PO SCH (20:34)
[2019-05-15] MEDS: ACETAMINOPHEN 325 MG TAB PO PRN (00:15)
[2019-05-15 07:29] LABS: Hematocrit (blood only) 34.2 % (37-47); Hemoglobin 11.1 g/dL (12.0-16.0); Mean Corpuscular Hemoglobin 30.5 pg (25-34); Mean Corpuscular Hgb Conc 32.5 g/dL (32-36); Mean Platelet Volume 10.1 fL (7.4-10.4); Platelet Count 209 K/uL (130-400); RDW Coefficient of Variation 16.2 % (11.5-14.5); RDW Standard Deviation 54.9 fL (36.4-46.3); Red Blood Count 3.64 M/uL (4.2-5.4); White Blood Count 5.71 K/uL (4.8-10.8)
[2019-05-15 08:01] LABS: BUN Creatinine Ratio 25.9 (10-20); Calcium 8.8 mg/dl (8.5-10.1); Est GFR (African American) 91.3; Est GFR (Non-African American) 78.8; Potassium 3.7 mmol/L (3.5-5.1)
[2019-05-15] MEDS: CHOLECALCIFEROL 1,000 UNITS TAB PO SCH (08:15)
[2019-05-15] MEDS: DOXYCYCLINE HYCLATE 100 MG CAP PO SCH ×2 (08:15→21:35)
[2019-05-15] MEDS: FOLIC ACID 400 MCG TAB PO SCH (08:16)
[2019-05-15] MEDS: ASCORBIC ACID 500 MG TAB PO SCH (08:17)
[2019-05-15] MEDS: FLUTICASONE PROPIONATE NA SPR 16 GM BTL SCH ×2 (08:17→21:35)
[2019-05-15] MEDS: APIXABAN 5 MG TABLET PO SCH ×2 (08:17→21:35)
[2019-05-15] MEDS ORDERED: INFLUENZA VIRUS QUAD VACCINE 0.5 ML SYR IM ONE (11:45)
[2019-05-15] MEDS ORDERED: INFLUENZA ADMINISTRATION CHARGE ONE (11:45)
[2019-05-15] MEDS: MAGNESIUM OXIDE 400 MG TAB PO SCH (11:53)
--- NOTE | 2019-05-15 18:50 | Hospitalist Progress Note ---
Date of Service May 15, 2019 Assessment & Plan (1) Bilateral pulmonary embolism: Bilateral pulmonary emboli due to right external iliac, right common femoral DVT's - CTA reviewed showing extensive pulmonary emboli bilaterally, distal main right as well as distal main left pulmonary artery as well as more distal pulmonary arterial structures. No saddle embolus. - Not hypoxic.SHe is hemodynamically stable although BP slightly lower still- holding metoprolol -cause likely recent hip surgery, has RA, has been quite sedentary, and possible inherited hypercoagulable state with sister with Prothrombin gene mutation (shows me her sister's lab results) and a brother with DVT, Father with PE who at age 57 -Initially was placed on heparin drip for the first 24 hours of hospitalization - discussed options for anticoagulation and pt chose Eliquis-continue at 10mg po bid x 7 days and then convert to 5mg po bid on 05/21 ECHO with right heart strain and mildly decreased RV function, Pulm HTN -f/u on hypercoag workup when results available -will need at least 6 months AC and possibly lifelong prophylaxis if has inherited disorder -Would suggest repeat imaging and possible consultation with hematology as an outpatient regarding her hypercoagulable state (2) DVT (deep venous thrombosis): -CT abdomen pelvis reviewed: Shows DVT present within the right external iliac, right common femoral, right superficial femoral veins AC as above (3) Elevated troponin: - Elevated at 0.5 and then trended downward, secondary to PE, not ACS No ischemia on ECG (4) Acute right-sided heart failure: as above recommend repeat ECHO in a few months to see if improving (5) Pulmonary hypertension: as above (6) Non-healing surgical wound: right anterior hip Secondary to hip replacement surgery and MRSA infection -continue doxy 100mg po bid Continue wound care -would recommend HOLDING MTX until wound is healed (7) Methotrexate, intermodal truck driver, current use: for RA, has been continued on MTX despite non-healing wound and infection in hip--> recommend stopping MTX until wound healed as above (8) Hypertension: -Holding metoprolol succinate 25 mg QAM for borderline low blood pressures (9) Rheumatoid arthritis: - Chronic, recommend holding methotrexate as above-- last taken 05/10 (10) Obesity: BMI 34.0 Recommend weight loss (11) Migraine headache: - Continue trokendi 100 mg PO HS, will bring in from home as brand not in house, gets somnolent with topamax brand. Continue imitrex prn -Discontinue naproxen and all other NSAIDs- uses also for RA, if worsening pain can use Tylenol or tramadol CODE: FULL Dispo: From home, continued stay 1 more night for continued observation Encouraged ambulation Subjective Patient feeling a little bit better today. She ambulated the halls and did not feel significant dyspnea. Denies chest pain. Feels her right lower extremity is uncomfortable with swelling but not painful. Is having some pain in her joints as she has not been taking her naproxen.denies headache or lightheadedness. No nausea or abdominal pain, no diarrhea. Telemetry with normal sinus rhythm with rates in the 70s to 90s Review of Systems Review of Systems: All systems reviewed & are unremarkable except as noted in HPI & below Physical Exam Constitutional: WD/WN, vitals as above Eyes: + anicteric sclerae ENMT: external ear and nose normal, oropharynx normal Neck: trachea midline, no thyromegaly Respiratory: normal respiratory effort, lungs clear to auscultation Cardiovascular: Rate/Rhythm: regular rate and regular rhythm Extremities: + edema (2+ edema entire RLE with mild erythema) Gastrointestinal (Abdomen): normal bowel sounds, soft, nontender, no hepatosplenomegaly Musculoskeletal: Extremities: extremities normal to inspection; no cyanosis and no clubbing Skin: + wound (Right anterior hip with 2 x 1 cm superficial open wound draining purulent drainage with mild erythema surrounding) Neurologic: moves all extremities and awake; no focal motor deficits Psychiatric: A+Ox3, euthymic affect Results & Data Vital Signs (Past 12 Hours) Vital Signs Temp Pulse Resp BP Pulse Ox 05/15/19 16:14 36.5 C 89 18 117/83 19 L 05/15/19 15:33 96 05/15/19 10:49 37.1 C 87 18 107/73 98 05/15/19 07:34 37.0 C 81 18 91/59 L 96 Laboratory Results 05/15/19 05/15/19 Range/Units 06:55 06:55 WBC 5.71 (4.8-10.8) K/uL RBC 3.64 L (4.2-5.4) M/uL Hgb 11.1 L (12.0-16.0) g/dL Hct 34.2 L (37-47) % MCV 94.0 (80-100) fL MCH 30.5 (25-34) pg MCHC 32.5 (32-36) g/dL RDW Std Deviation 54.9 H (36.4-46.3) fL RDW Coeff of Viry 16.2 H (11.5-14.5) % Plt Count 209 (130-400) K/uL MPV 10.1 (7.4-10.4) fL Sodium 142 (136-145) mmol/L Potassium 3.7 (3.5-5.1) mmol/L Chloride 113 H (98-107) mmol/L Carbon Dioxide 23 (21-32) mmol/L Anion Gap 7.0 (3-11) BUN 22 H (7-18) mg/dl Creatinine 0.85 (0.6-1.2) mg/dl Est Cr Clr Drug Dosing 81.0 ml/min Est GFR ( Amer) 91.3 Est GFR (Non-Af Amer) 78.8 BUN/Creatinine Ratio 25.9 H (10-20) Glucose 82 (70-99) mg/dl Calcium 8.8 (8.5-10.1) mg/dl PG Care Time/CCT Total # of Minutes Spent Total Time Spent with Patient: Total time spent is greater than 50% in coordination of care (as documented) at patient's floor/unit and/or counseling patient:
[2019-05-15] MEDS: TOPIRAMATE PO SCH (21:44)
[2019-05-16] MEDS: ACETAMINOPHEN 325 MG TAB PO PRN (05:55)
[2019-05-16 07:37] LABS: Hematocrit (blood only) 33.9 % (37-47); Hemoglobin 11.2 g/dL (12.0-16.0); Mean Corpuscular Hemoglobin 30.9 pg (25-34); Mean Corpuscular Volume 93.6 fL (80-100); Mean Platelet Volume 9.9 fL (7.4-10.4); Platelet Count 201 K/uL (130-400); RDW Coefficient of Variation 16.5 % (11.5-14.5); RDW Standard Deviation 56.4 fL (36.4-46.3); Red Blood Count 3.62 M/uL (4.2-5.4); White Blood Count 5.17 K/uL (4.8-10.8)
[2019-05-16 08:08] LABS: BUN Creatinine Ratio 27.1 (10-20); Calcium 9.1 mg/dl (8.5-10.1); Creatinine Clr Calc Pharmacy 82.2 ml/min; Est GFR (African American) 92.6; Est GFR (Non-African American) 79.9; Potassium 3.5 mmol/L (3.5-5.1)
[2019-05-16] MEDS: FLUTICASONE PROPIONATE NA SPR 16 GM BTL SCH (08:22)
[2019-05-16] MEDS: APIXABAN 5 MG TABLET PO SCH (08:23)
[2019-05-16] MEDS: DOXYCYCLINE HYCLATE 100 MG CAP PO SCH (08:24)
[2019-05-16] MEDS: FOLIC ACID 400 MCG TAB PO SCH (08:24)
[2019-05-16] MEDS: ASCORBIC ACID 500 MG TAB PO SCH (08:25)
[2019-05-16] MEDS: CHOLECALCIFEROL 1,000 UNITS TAB PO SCH (08:25)
[2019-05-16] MEDS: MAGNESIUM OXIDE 400 MG TAB PO SCH (11:03)
[2019-05-16] MEDS ORDERED: Nursing to Pharmacy Communication ONE (11:07)
[2019-05-16] MEDS ORDERED: METOPROLOL SUCC 25MG EXT REL TAB PO SCH (11:30)
--- NOTE | 2019-05-16 12:43 | Discharge Summary ---
Date of Service May 16, 2019 Admission HPI Per Admitting Provider This is a 53 yo F with PMHx of migraine, HTN, RA on methotrexate, GERD, scoliosis, obesity, recently had total hip surgeries within the past year, had the Left total hip in October 2018 and the Right total hip in February 2019. She had issues with wound closure with the right hip and was on a wound vac, however s/p skin grafting has had good closure of the wound. She is currently on doxycycline for this. Patient reports that she developed worsening shortness of breath this morning upon waking, she was unable to walk to the bathroom which is only a small distance away without becoming extremely short of breath. She admits to palpitations when doing something strenuous, such as even using the bedpan in the ER. This morning she also noticed that her RLE appeared to be slightly more swollen, but denies any right calf pain. Pt has a family history of multiple family members with clotting disorders. She reports her sister has been tested genetically and has Factor 3 gene deficiency. Patient denies any personal history of clots in her past. 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 Pt with elevated troponin at 0.593, and found to have extensive bilateral PE on CTA and extensive R ext iliac, R deep and superficial femoral. Principal Diagnosis Bilateral pulmonary embolism, Right lower extremity DVT Discharge Exam Constitutional WD/WN, vitals as above Eyes + anicteric sclerae ENMT external ear and nose normal, oropharynx normal Neck trachea midline, no thyromegaly Respiratory normal respiratory effort, lungs clear to auscultation Cardiovascular Rate/Rhythm: regular rate and regular rhythm Extremities: + edema (2+ edema entire RLE with mild erythema) Gastrointestinal (Abdomen) normal bowel sounds, soft, nontender, no hepatosplenomegaly Musculoskeletal Extremities: extremities normal to inspection; no cyanosis and no clubbing Skin no rashes, warm and dry + wound (Right anterior hip with 2 x 1 cm superficial open wound draining purulent drainage with mild erythema surrounding) Neurologic moves all extremities and awake; no focal motor deficits Psychiatric A+Ox3, euthymic affect Discharge Data Allergies Allergy/AdvReac Type Severity Reaction Status Date / Time SENDY Inhibitors Allergy Mild Cough Verified 05/13/19 10:21 adhesive tape Allergy Mild SKIN Verified 05/13/19 10:21 IRRITATION Consultations 05/13/19 11:30 ED Decision to Admit Stat 05/13/19 15:02 Consult Case Management - Discharge Planning Routine Ordered Studies 05/13/19 10:27 CT abd pelvis IV con only Stat CT angio chest PE protocol Stat CXR ECHO Hospital Course (1) Bilateral pulmonary embolism: Bilateral pulmonary emboli due to right external iliac, right common femoral DVTs - CTA reviewed showing extensive pulmonary emboli bilaterally, distal main right as well as distal main left pulmonary artery as well as more distal pulmonary arterial structures. No saddle embolus. - Not hypoxic. SHe is hemodynamically stable She is still having some mild sinus tachycardia with etting up to walk to the bathroom but quickly recovers Cause of VTE likely recent hip surgery, has RA, has been quite sedentary, and possible inherited hypercoagulable state with sister with Prothrombin gene mutation (shows me her sister's lab results) and a brother with DVT, Father with PE who at age 57 -Initially was placed on heparin drip for the first 24 hours of hospitalization - discussed options for anticoagulation and pt chose Eliquis-continue at 10mg po bid x 7 days and then convert to 5mg po bid on 05/21 ECHO with right heart strain and mildly decreased RV function, Pulm HTN -f/u on hypercoag workup when results available with PCP -will need at least 6 months AC and possibly lifelong prophylaxis if has inherited disorder -Would suggest repeat imaging and possible consultation with hematology as an outpatient regarding her hypercoagulable state (2) DVT (deep venous thrombosis): -CT abdomen pelvis reviewed: Shows DVT present within the right external iliac, right common femoral, right superficial femoral veins AC as above (3) Elevated troponin: - Elevated at 0.5 and then trended downward, secondary to PE, not ACS No ischemia on ECG (4) Acute right-sided heart failure: as above recommend repeat ECHO in a few months to see if improving (5) Pulmonary hypertension: as above (6) Non-healing surgical wound: right anterior hip Secondary to hip replacement surgery and MRSA infection -continue doxy 100mg po bid Continue wound care -would recommend HOLDING MTX until wound is healed (7) Methotrexate, terminal gauger, current use: for RA, has been continued on MTX despite non-healing wound and infection in hip--> recommend stopping MTX until wound healed as above (8) Hypertension: -Holding metoprolol succinate 25 mg QAM for borderline low blood pressures (9) Rheumatoid arthritis: - Chronic, recommend holding methotrexate as above-- last taken 05/10 (10) Obesity: BMI 34.0 Recommend weight loss (11) Migraine headache: - Continue trokendi 100 mg PO HS, will bring in from home as brand not in house, gets somnolent with topamax brand. Continue imitrex prn -Discontinue naproxen and all other NSAIDs- uses also for RA, if worsening pain can use Tylenol or tramadol CODE: FULL Dispo: From home, stable for dc to home today with close PCP follow up Total Time Total Time Spent Total Time Spent (In Minutes): 35 min Total Time Includes: Examination of the Patient, Discharge Planning and Medication Reconciliation Discharge Plan Discharge Items Patient Disposition: Home - Self-Care Reason For Visit: BILATERAL PULMONARY EMBOLISM Discharge Diagnosis: Bilateral pulmonary embolism, Right lower extremity DVT Condition on Discharge: Fair Goals: You have been hospitalized for an acute medical problem. During your stay at [facility], we have made an effort to correct the problem that brought you to the hospital while keeping you as comfortable as possible. Medications were used to bring your condition under control and your discharge instructions will include directions for any medications you should take after leaving the hospital. Please make sure you see your Primary Care Provider as part of your follow up plan. Lifting: Gradually increase as tolerated Bathing: No limitations Exercise/Sports: Gradually increase as tolerated Driving/Machine Use: No limitations Weightbearing: Full weightbearing Non-emergency contact: Primary Care Provider Call non-emergency contact if: you have any medication questions, your symptoms worsen, your pain is not controlled, your pain is worsening, your pain is unusual for you and your pain is concerning for you Follow-up/Referrals: Jasmeet Awad III, MD [Primary Care Provider] - 05/22/19 2:20 pm (A follow up appt. has been made for you with Dr. Awad on May 22 at 2:20pm.) Diet: Regular Addtl Attending Provider Instructions: You were admitted with blood clots in your lungs and right lower extremity. This is being treated with a blood thinner called Eliquis. Please continue on the Eliquis at the 10mg twice a day dose for 5 more days, then go down on the dose to 5mg twice a day. The results of your genetic testing for blood clotting disorders is still pending-Dr. Awad can follow up on this for you at your appointment. 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 If you have any major bleeding issues, please come to the hospital immediately. If you fall and hit your head or have major trauma, please also come to the ER to be evaluated. Pending Studies at Discharge: Yes (Hypercoagulable workup studies) Stand-Alone Forms: [facility], Work/School Release (Inpt) Medications and DC Order Prescriptions: New Eliquis 5 mg (74 tabs) tablets,dose pack 10 mg PO BID Qty: 74 RF: 0 Continued doxycycline hyclate 100 mg capsule 100 mg PO BID Qty: 60 RF: 2 ascorbic acid (vitamin C) [Vitamin C] 1,000 mg Tablet 1 tab PO QAM RF: 0 acetaminophen [Tylenol] 325 mg Tablet 1 - 2 tab PO Q6H PRN (Reason: Pain) RF: 0 ranitidine HCl 300 mg Tablet 300 mg PO BID RF: 0 sumatriptan succinate [Imitrex] 100 mg Tablet 1 tab PO UD PRN (Reason: Migraine Headache) RF: 0 metoprolol succinate 25 mg Tablet Extended Release 24 Hr 25 mg PO QAM RF: 0 fluticasone propionate [Flonase Allergy Relief] 50 mcg/actuation [place],Suspension 1 spray INTRANASAL BID RF: 0 folic acid 800 mcg Tablet 0.8 mg PO QAM RF: 0 cholecalciferol (vitamin D3) [Vitamin D3] 1,000 unit Tablet 3,000 unit PO QAM RF: 0 magnesium oxide 400 mg Capsule 400 mg PO QAM RF: 0 Trokendi XR 100 mg Capsule,Extended Release 24hr 100 mg PO HS RF: 0 oxycodone 5 mg Tablet 5 - 10 mg PO Q4H PRN (Reason: pain) Qty: 40 RF: 0 Discontinued naproxen [Naprosyn] 500 mg Tablet 500 mg PO BID RF: 0 methotrexate sodium 2.5 mg tablet 20 mg PO WEEKLY RF: 0 Discharge Orders: Discharge Order (Routine); Ordered 05/16/19 Ordered By: Jessi Salmeron Admission Data Admit Date/Time: 05/13/19 12:10 Attending Provider: Jessi Salmeron Admit Provider: Margarita Brand Primary Care Provider: Jasmeet Awad III Other Providers: Margarita Brand
[2019-05-17] MEDS ORDERED: metHOTREXate sodium 2.5 MG TAB PO SCH (09:00)
[2019-05-20 13:21] LABS: Anti Cardiolipin Ab IgG <14 GPL (< = 14); Anti Cardiolipin Ab IgM <12 MPL (< = 12); Anti-Cardiolipin Ab IgA <11 APL (< = 11); Anti-Thrombin III Activity 107 % activity (80-120); B2 Glycoprotein IgA <9 SAU (<=20); B2 Glycoprotein IgG 12 SGU (<=20); B2 Glycoprotein IgM <9 SMU (<=20); Lupus Anticoagulant Negative (Negative); Protein S Functional(Activity) 85 % (60-140)
== END 2019-05-16 13:46 | disposition home or self-care (01) | DRG 299 ==
LOC: ED 09:27 → SUATTDRO 12:10 → 2S 12:10